=== PATIENT | female | born 1955 | race Caucasian/White ===

== ENCOUNTER → 2017-03-03 | Outpatient (CLI) | payer OTHER ==
[~2017-03-03] MED LIST: ASPIRIN81 M2 PO; ATORVASTATIN CA40 MG PO; CELEXA10 MG PO; CELEXA20 MG PO; CYCLOBENZAPRINE10 MG PO; ERGOCALCIF50000 UNIT PO; FOLIC ACID1 MG PO; HYDROXYCHLOROQ200 MG PO; JANUVIA25 M1 PO; LISINOPRIL30 MG PO; METHOTREXATE2.5 MG PO; METOPROLOL TART25 MG PO; OMEPRAZOLE20 MG PO; PREDNISONE5 MG PO; ROXICODONE5 MG PO; SPIRIVA1 INHALATI IH; VENTOLIN HFA18 GM IH
== END | disposition home or self-care (01) ==
LOC: RES 08:57
DX: Z02.71 Encounter for disability determination (principal)
CPT/HCPCS: 94060; 94729; 94760

== ENCOUNTER 2017-03-10 18:05 | Emergency (ER) | payer OTHER ==
[~2017-03-10] VITALS: Ht 154.9 cm; Wt 75.6 kg
[~2017-03-10 18:05] MED LIST changes: -ATORVASTATIN CA40 MG PO; -CELEXA20 MG PO; -CYCLOBENZAPRINE10 MG PO; -ERGOCALCIF50000 UNIT PO; -FOLIC ACID1 MG PO; -HYDROXYCHLOROQ200 MG PO; -JANUVIA25 M1 PO; -LISINOPRIL30 MG PO; -METHOTREXATE2.5 MG PO; -METOPROLOL TART25 MG PO; -OMEPRAZOLE20 MG PO; -ROXICODONE5 MG PO; -SPIRIVA1 INHALATI IH; -VENTOLIN HFA18 GM IH
[2017-03-10 19:47] LABS: HEMATOCRIT 36.9 % (36.0-46.0); MCH 30.4 PG (29.0-34.0); MCHC 33.3 G/DL (30.0-36.0); MCV 91.1 FL (83-99); MEAN PLAT.VOLUME 8.8 uM^3 (9.5-12.4); PLATELET COUNT 230 K/uL (156-360); RBC DIS.WIDTH-SD 46.1 % (39-53); RED BLOOD COUNT 4.05 M/uL (3.80-5.20); WHITE BLOOD COUNT 9.1 K/uL (4.1-10.2)
[2017-03-10 19:57] LABS: CHLORIDE 106 mEq/L (99-109); POTASSIUM 4.1 mEq/L (3.7-5.4); SODIUM 142 mEq/L (136-147)
[2017-03-10 19:59] LABS: GLUCOSE 99 mg/dL (70-99)
[2017-03-10 20:00] LABS: ANION GAP 9 MEQ/L (2-14)
[2017-03-10 20:03] LABS: GFR ESTIMATE (CALCULATED) > 59 mL/min/
[2017-03-10 20:04] LABS: UREA NITROGEN (BUN) 13 mg/dL (9-23)
[2017-03-10 20:10] LABS: TROP-I INTERPRETATION NEGATIVE; TROPONIN-I < 0.01 ng/mL (0.0-0.30)
[2017-03-10 22:06] VITALS: BP 188/100
== END 2017-03-10 22:08 | disposition home or self-care (01) ==
LOC: EME 18:05
PROVIDERS: Emergency Medicine
DX: E86.0 Dehydration (principal); R55 Syncope and collapse; J44.9 Chronic obstructive pulmonary disease, unspecified; K21.9 Gastro-esophageal reflux disease without esophagitis; M06.9 Rheumatoid arthritis, unspecified; F17.200 Nicotine dependence, unspecified, uncomplicated
CPT/HCPCS: 80048; 84484; 85027; 93005; 99281; 99284; J7030

== ENCOUNTER 2017-03-14 11:38 | Inpatient (IN) | payer OTHER ==
[~2017-03-14] VITALS: Ht 154.9 cm; Wt 75.5 kg
[2017-03-14 13:52] LABS: EOSINOPHIL (%) 1.3 % (0-5); EOSINOPHIL COUNT 0.2 K/uL (0-0.3); HEMATOCRIT 37.5 % (36.0-46.0); IMMATURE GRANULOCYTE (%) 1.1 % (0.0-0.7); IMMATURE GRANULOCYTE COUNT 0.1 K/uL; INSTRUMENT ABS NEUTROPHIL CT 7.5 K/uL; LYMPHOCYTE COUNT 2.4 K/uL (1.0-2.8); MCH 30.6 PG (29.0-34.0); MCHC 33.6 G/DL (30.0-36.0); MEAN PLAT.VOLUME 9.1 uM^3 (9.5-12.4); MONOCYTE (%) 10.3 % (3-12); MONOCYTE COUNT 1.2 K/uL (0-0.8); NEUTROPHIL (%) 66.1 % (45-76); NEUTROPHIL COUNT 7.5 K/uL (1.8-6.4); PLATELET COUNT 235 K/uL (156-360); RBC DIS.WIDTH-SD 46.6 % (39-53); RED BLOOD COUNT 4.12 M/uL (3.80-5.20); WHITE BLOOD COUNT 11.3 K/uL (4.1-10.2)
[2017-03-14 14:01] LABS: CHLORIDE 106 mEq/L (99-109); POTASSIUM 3.9 mEq/L (3.7-5.4); SODIUM 142 mEq/L (136-147)
[2017-03-14 14:02] LABS: INTER. NORMALIZED RATIO 1.1; PTT 22.5 (25-32)
[2017-03-14 14:03] LABS: GLUCOSE 129 mg/dL (70-99)
[2017-03-14 14:04] LABS: ANION GAP 9 MEQ/L (2-14)
[2017-03-14 14:07] LABS: GFR ESTIMATE (CALCULATED) > 59 mL/min/
[2017-03-14 14:08] LABS: UREA NITROGEN (BUN) 18 mg/dL (9-23)
[2017-03-14 14:13] LABS: TROP-I INTERPRETATION NEGATIVE; TROPONIN-I < 0.01 ng/mL (0.0-0.30)
[2017-03-14] MEDS ORDERED: CELEXA20 MG PO (15:51)
[2017-03-14] MEDS ORDERED: FOLIC ACID1 MG PO (15:51)
[2017-03-14] MEDS ORDERED: OMEPRAZOLE20 MG PO (15:52)
[2017-03-14] MEDS ORDERED: LISINOPRIL30 MG PO (15:52)
[2017-03-14] MEDS ORDERED: ATORVASTATIN CA40 MG PO (15:53)
[2017-03-14] MEDS ORDERED: ROXICODONE5 MG PO (15:53)
[2017-03-14] MEDS ORDERED: CYCLOBENZAPRINE10 MG PO (15:53)
[2017-03-14] MEDS ORDERED: ERGOCALCIF50000 UNIT PO (15:54)
[2017-03-14] MEDS ORDERED: HYDROXYCHLOROQ200 MG PO (15:54)
[2017-03-14] MEDS ORDERED: METHOTREXATE2.5 MG PO (15:55)
[2017-03-14] MEDS ORDERED: SPIRIVA1 INHALATI IH (15:55)
[2017-03-14] MEDS ORDERED: METOPROLOL TART25 MG PO (15:55)
[2017-03-14] MEDS ORDERED: JANUVIA25 M1 PO (15:55)
[2017-03-14] MEDS ORDERED: VENTOLIN HFA18 GM IH (15:56)
[2017-03-15] VITALS: BP 153/74
[2017-03-15 03:46] VITALS: BP 125/79
[2017-03-15 08:00] VITALS: BP 159/72
[2017-03-15 11:23] VITALS: BP 129/77
[2017-03-15 15:44] VITALS: BP 143/66
[2017-03-15 19:48] VITALS: BP 161/72
[2017-03-16] VITALS (7 sets, daily range): BP systolic 124–169; BP diastolic 66–78
[2017-03-17 04:49] VITALS: BP 161/70
[2017-03-17 08:05] VITALS: BP 184/88
[2017-03-17 15:31] VITALS: BP 172/82
[2017-03-17 20:23] VITALS: BP 182/80
[2017-03-18 00:27] VITALS: BP 152/72
[2017-03-18 08:21] VITALS: BP 160/84
[2017-03-18] MEDS ORDERED: ASPIR-LOW81 MG PO (17:41)
[2017-03-18] MEDS ORDERED: NICOTINE PATCH1 EAC2 TD (17:41)
== END 2017-03-18 18:58 | disposition home or self-care (01) | DRG 65 ==
LOC: EME 11:38 → EDOF 15:20 → 5SOUTH 15:20
PROVIDERS: Emergency Medicine; Internal Medicine
DX: I63.032 Cerebral infarction due to thrombosis of left carotid artery (principal); G81.91 Hemiplegia, unspecified affecting right dominant side; E78.5 Hyperlipidemia, unspecified; E86.0 Dehydration; F17.210 Nicotine dependence, cigarettes, uncomplicated; J44.9 Chronic obstructive pulmonary disease, unspecified; I10 Essential (primary) hypertension; K21.9 Gastro-esophageal reflux disease without esophagitis; E55.9 Vitamin D deficiency, unspecified; E53.8 Deficiency of other specified B group vitamins; F32.9 Major depressive disorder, single episode, unspecified; G89.4 Chronic pain syndrome; E11.9 Type 2 diabetes mellitus without complications; M06.9 Rheumatoid arthritis, unspecified; G43.909 Migraine, unspecified, not intractable, without status migrainosus; G93.89 Other specified disorders of brain; F41.9 Anxiety disorder, unspecified; Z79.82 Long term (current) use of aspirin; Z86.73 Personal history of transient ischemic attack (TIA), and cerebral infarction without residual deficits; Z79.84 Long term (current) use of oral hypoglycemic drugs
CPT/HCPCS: 70450; 70551; 71010; 80048; 80061; 82948; 83036; 84484; 85025; 85610; 85730; 93005; 93306; 93880; 94640; 94640 76; 99202; 99281; 99285; J7512

== ENCOUNTER 2017-05-02 11:09 | Emergency (ER) | payer OTHER ==
[~2017-05-02] VITALS: Ht 160 cm; Wt 81.0 kg
[~2017-05-02 11:09] MED LIST changes: +ASPIR-LOW81 MG PO; +ATORVASTATIN CA40 MG PO; +CELEXA20 MG PO; +CYCLOBENZAPRINE10 MG PO; +ERGOCALCIF50000 UNIT PO; +FOLIC ACID1 MG PO; +HYDROXYCHLOROQ200 MG PO; +JANUVIA25 M1 PO; +LISINOPRIL30 MG PO; +METHOTREXATE2.5 MG PO; +METOPROLOL TART25 MG PO; +NICOTINE PATCH1 EAC2 TD; +OMEPRAZOLE20 MG PO; +ROXICODONE5 MG PO; +SPIRIVA RESPIMAT4 G1 IH; +SPIRIVA1 INHALATI IH; +TRAMADOL HCL50 MG PO; +VENTOLIN HFA18 GM IH
[2017-05-02] MEDS ORDERED: PREDNISONE50 MG PO (14:12)
[2017-05-02 14:15] LABS: MCHC 32.3 G/DL (30.0-36.0); MCV 92.8 FL (83-99); PLATELET COUNT 195 K/uL (156-360); RBC DIS.WIDTH-CV 13.6 % (11.8-14.6); RBC DIS.WIDTH-SD 45.8 % (39-53); RED BLOOD COUNT 3.77 M/uL (3.80-5.20); WHITE BLOOD COUNT 10.4 K/uL (4.1-10.2)
[2017-05-02 14:24] LABS: CHLORIDE 104 mEq/L (99-109); SODIUM 139 mEq/L (136-147)
[2017-05-02 14:26] LABS: GLUCOSE 140 mg/dL (70-99)
[2017-05-02 14:27] LABS: ANION GAP 9 MEQ/L (2-14)
[2017-05-02 14:30] LABS: GFR ESTIMATE (CALCULATED) > 59 mL/min/
[2017-05-02 14:31] LABS: UREA NITROGEN (BUN) 10 mg/dL (9-23)
[2017-05-02 14:37] LABS: TROP-I INTERPRETATION NEGATIVE; TROPONIN-I < 0.01 ng/mL (0.0-0.30)
[2017-05-02 14:57] VITALS: BP 117/74
== END 2017-05-02 15:04 | disposition home or self-care (01) ==
LOC: EME 11:09
DX: J44.1 Chronic obstructive pulmonary disease with (acute) exacerbation (principal); Z87.891 Personal history of nicotine dependence; Z86.73 Personal history of transient ischemic attack (TIA), and cerebral infarction without residual deficits; K21.9 Gastro-esophageal reflux disease without esophagitis
CPT/HCPCS: 71020; 80048; 83880; 84484; 85027; 94640; 99281; 99284; J2930

== ENCOUNTER 2017-06-20 10:10 | Emergency (ER) | payer OTHER ==
[~2017-06-20] VITALS: Ht 160 cm; Wt 84.4 kg
[~2017-06-20 10:10] MED LIST changes: +GABAPENTIN300 MG PO; +PREDNISONE50 MG PO
[2017-06-20] MEDS ORDERED: PREDNISONE20 MG PO (12:45)
[2017-06-20] MEDS ORDERED: DUONEB 2.5-0.5 M3 ML AEROSOL (12:45)
[2017-06-20] MEDS ORDERED: PROVENTIL,2.5 MG/3 M IH (12:45)
[2017-06-20 13:00] VITALS: BP 168/83
== END 2017-06-20 13:01 | disposition home or self-care (01) ==
LOC: EME 10:10
DX: J44.9 Chronic obstructive pulmonary disease, unspecified (principal); R06.2 Wheezing; F17.200 Nicotine dependence, unspecified, uncomplicated; Z86.73 Personal history of transient ischemic attack (TIA), and cerebral infarction without residual deficits; K21.9 Gastro-esophageal reflux disease without esophagitis; M06.9 Rheumatoid arthritis, unspecified
CPT/HCPCS: 71020; 80048; 85027; 94640; 99281; 99284

== ENCOUNTER 2017-06-28 12:16 | Emergency (ER) | payer OTHER ==
[~2017-06-28] VITALS: Ht 160 cm; Wt 85.9 kg
[~2017-06-28 12:16] MED LIST changes: +DUONEB 2.5-0.5 M3 ML AEROSOL; +PREDNISONE20 MG PO; +PROVENTIL,2.5 MG/3 M IH
[2017-06-28] MEDS ORDERED: XARELTO15 MG PO (15:02)
[2017-06-28 16:23] VITALS: BP 141/57
== END 2017-06-28 16:25 | disposition home or self-care (01) ==
LOC: EME 12:16
DX: I82.B11 Acute embolism and thrombosis of right subclavian vein (principal); Z79.82 Long term (current) use of aspirin; J44.9 Chronic obstructive pulmonary disease, unspecified; M06.9 Rheumatoid arthritis, unspecified; Z86.73 Personal history of transient ischemic attack (TIA), and cerebral infarction without residual deficits; F17.200 Nicotine dependence, unspecified, uncomplicated; Z95.828 Presence of other vascular implants and grafts
CPT/HCPCS: 73030; 85610; 93971; 99281; 99284

== ENCOUNTER 2017-07-24 17:41 | Observation (INO) | payer OTHER ==
[~2017-07-24] VITALS: Ht 160 cm; Wt 119.0 kg
[~2017-07-24 17:41] MED LIST changes: +SPIRIVA RESPIMAT4 GM IH; -SPIRIVA1 INHALATI IH; +XARELTO15 MG PO
[2017-07-24 18:47] LABS: EOSINOPHIL (%) 0.4 % (0-5); HEMATOCRIT 36.2 % (36.0-46.0); IMMATURE GRANULOCYTE (%) 0.7 % (0.0-0.7); IMMATURE GRANULOCYTE COUNT 0.1 K/uL; INSTRUMENT ABS NEUTROPHIL CT 7.6 K/uL; LYMPHOCYTE COUNT 2.1 K/uL (1.0-2.8); MCHC 32.6 G/DL (30.0-36.0); MCV 92.1 FL (83-99); MEAN PLAT.VOLUME 9.6 uM^3 (9.5-12.4); MONOCYTE (%) 8.1 % (3-12); MONOCYTE COUNT 0.9 K/uL (0-0.8); NEUTROPHIL COUNT 7.6 K/uL (1.8-6.4); PLATELET COUNT 196 K/uL (156-360); RBC DIS.WIDTH-CV 13.3 % (11.8-14.6); RED BLOOD COUNT 3.93 M/uL (3.80-5.20); WHITE BLOOD COUNT 10.7 K/uL (4.1-10.2)
[2017-07-24 18:52] LABS: INTER. NORMALIZED RATIO 1.6; PROTHROMBIN TIME 18.3 SEC (10.2-12.9)
[2017-07-24 18:55] LABS: PTT 76.9 SEC (25-37)
[2017-07-24 18:56] LABS: CHLORIDE 108 mEq/L (99-109); POTASSIUM 3.6 mEq/L (3.7-5.4); SODIUM 144 mEq/L (136-147)
[2017-07-24 18:57] LABS: GLUCOSE 189 mg/dL (70-99)
[2017-07-24 18:59] LABS: ANION GAP 11 MEQ/L (2-14)
[2017-07-24 19:01] LABS: GFR ESTIMATE (CALCULATED) > 59 mL/min/
[2017-07-24 19:02] LABS: UREA NITROGEN (BUN) 13 mg/dL (9-23)
[2017-07-24 19:07] LABS: TROP-I INTERPRETATION NEGATIVE; TROPONIN-I < 0.01 ng/mL (0.0-0.30)
[2017-07-24] MEDS ORDERED: DUONEB 2.5-0.5 M3 ML AEROSOL (20:09)
[2017-07-24] MEDS ORDERED: LO-DOSE ASPIRIN81 M1 PO (20:10)
[2017-07-24 22:16] VITALS: BP 149/70
[2017-07-24 23:42] VITALS: BP 158/72
[2017-07-25 01:47] LABS: TROP-I INTERPRETATION NEGATIVE; TROPONIN-I < 0.01 ng/mL (0.0-0.30)
[2017-07-25 03:54] VITALS: BP 144/104
[2017-07-25 04:35] VITALS: BP 159/72
[2017-07-25 08:34] VITALS: BP 132/69
[2017-07-25 09:04] LABS: TROP-I INTERPRETATION NEGATIVE; TROPONIN-I < 0.01 ng/mL (0.0-0.30)
[2017-07-25 11:19] VITALS: BP 116/68
== END 2017-07-25 14:55 | disposition home or self-care (01) ==
LOC: EME 17:41 → EDOF 20:00 → ENRESERV 20:47 → 5WEST 22:02
PROVIDERS: Emergency Medicine; Internal Medicine
DX: R07.9 Chest pain, unspecified (principal); R51 Headache; R20.0 Anesthesia of skin; I10 Essential (primary) hypertension; E87.6 Hypokalemia; E78.5 Hyperlipidemia, unspecified; E11.9 Type 2 diabetes mellitus without complications; J44.9 Chronic obstructive pulmonary disease, unspecified; M06.9 Rheumatoid arthritis, unspecified; F32.9 Major depressive disorder, single episode, unspecified; F41.9 Anxiety disorder, unspecified; K21.9 Gastro-esophageal reflux disease without esophagitis; M19.90 Unspecified osteoarthritis, unspecified site; E53.8 Deficiency of other specified B group vitamins; E55.9 Vitamin D deficiency, unspecified; G89.4 Chronic pain syndrome; Z86.73 Personal history of transient ischemic attack (TIA), and cerebral infarction without residual deficits; F17.210 Nicotine dependence, cigarettes, uncomplicated; Z79.899 Other long term (current) drug therapy; Z79.82 Long term (current) use of aspirin; Z79.01 Long term (current) use of anticoagulants; Z79.891 Long term (current) use of opiate analgesic
CPT/HCPCS: 70450; 71010; 80048; 84484; 85025; 85610; 85730; 93005; 94640; 94640 76; 99202; 99281; 99285; G0378; J7512

== ENCOUNTER 2017-08-16 03:28 | Inpatient (IN) | payer OTHER ==
[~2017-08-16] VITALS: Ht 160 cm; Wt 86.6 kg
[~2017-08-16 03:28] MED LIST changes: +LO-DOSE ASPIRIN81 M1 PO
[2017-08-16 04:32] LABS: BASOPHIL COUNT 0.1 K/uL (0-0.1); EOSINOPHIL (%) 1.1 % (0-5); EOSINOPHIL COUNT 0.2 K/uL (0-0.3); HEMATOCRIT 38.5 % (36.0-46.0); IMMATURE GRANULOCYTE (%) 0.5 % (0.0-0.7); IMMATURE GRANULOCYTE COUNT 0.1 K/uL; INSTRUMENT ABS NEUTROPHIL CT 11.9 K/uL; LYMPHOCYTE COUNT 2.3 K/uL (1.0-2.8); MCH 30.5 PG (29.0-34.0); MCV 92.5 FL (83-99); MEAN PLAT.VOLUME 9.5 uM^3 (9.5-12.4); MONOCYTE (%) 7.2 % (3-12); MONOCYTE COUNT 1.1 K/uL (0-0.8); NEUTROPHIL (%) 76.3 % (45-76); NEUTROPHIL COUNT 11.9 K/uL (1.8-6.4); PLATELET COUNT 237 K/uL (156-360); RBC DIS.WIDTH-CV 13.7 % (11.8-14.6); RBC DIS.WIDTH-SD 45.5 % (39-53); RED BLOOD COUNT 4.16 M/uL (3.80-5.20); WHITE BLOOD COUNT 15.7 K/uL (4.1-10.2)
[2017-08-16 04:40] LABS: CHLORIDE 107 mEq/L (99-109); POTASSIUM 3.6 mEq/L (3.7-5.4); SODIUM 142 mEq/L (136-147)
[2017-08-16 04:42] LABS: GLUCOSE 106 mg/dL (70-99)
[2017-08-16 04:43] LABS: ANION GAP 7 MEQ/L (2-14)
[2017-08-16 04:45] LABS: GFR ESTIMATE (CALCULATED) > 59 mL/min/
[2017-08-16 04:46] LABS: UREA NITROGEN (BUN) 11 mg/dL (9-23)
[2017-08-16 04:51] LABS: TROP-I INTERPRETATION NEGATIVE; TROPONIN-I < 0.01 ng/mL (0.0-0.30)
[2017-08-16 07:37] LABS: ADD MIUA? NO; BILIRUBIN NEGATIVE; BLOOD NEGATIVE; COLOR YELLOW ((YELLOW)); GLUCOSE (STRIP) NEGATIVE; KETONES NEGATIVE; LEUKOCYTES NEGATIVE; NITRITE NEGATIVE; PROTEIN (STRIP) NEGATIVE; SPECIFIC GRAVITY 1.016 (1.000-1.030); UCUL ADDED? NO; UROBILINOGEN 0.2 MG/DL (0.2-1.0)
[2017-08-16 08:20] VITALS: BP 160/70
[2017-08-16 11:19] LABS: POINT-OF-CARE METER ID UU14162508
[2017-08-16 11:32] VITALS: BP 141/81
[2017-08-16 14:23] LABS: POINT-OF-CARE METER ID UU14314084
[2017-08-16 15:30] VITALS: BP 121/59
[2017-08-16 15:53] LABS: POINT-OF-CARE METER ID UU14208750
[2017-08-16 17:22] LABS: POINT-OF-CARE METER ID UU14314084
[2017-08-16 20:12] VITALS: BP 155/74
[2017-08-16 21:29] LABS: POINT-OF-CARE METER ID UU14314084
[2017-08-17] VITALS (7 sets, daily range): BP systolic 115–154; BP diastolic 55–89
[2017-08-17 07:36] LABS: POINT-OF-CARE METER ID UU14314084
[2017-08-17 14:29] LABS: POINT-OF-CARE METER ID UU14162508
[2017-08-17 16:41] LABS: POINT-OF-CARE METER ID UU14208750
[2017-08-17 22:18] LABS: POINT-OF-CARE METER ID UU14208750
[2017-08-18 04:38] VITALS: BP 131/66
[2017-08-18 06:36] LABS: POINT-OF-CARE METER ID UU14208750
[2017-08-18 07:05] VITALS: BP 179/81
[2017-08-18 12:05] VITALS: BP 166/81
[2017-08-18 12:20] LABS: POINT-OF-CARE METER ID UU14208750
[2017-08-18 16:10] VITALS: BP 162/77
[2017-08-18 16:26] LABS: POINT-OF-CARE METER ID UU14208750
[2017-08-18 20:23] VITALS: BP 177/85
[2017-08-18 21:30] VITALS: BP 162/88
[2017-08-18 21:37] LABS: POINT-OF-CARE METER ID UU14208750
[2017-08-19] VITALS (7 sets, daily range): BP systolic 148–195; BP diastolic 68–111
[2017-08-19 06:34] LABS: POINT-OF-CARE METER ID UU14208750
[2017-08-19 06:50] LABS: EOSINOPHIL (%) 0 % (0-5); HEMATOCRIT 34.9 % (36.0-46.0); IMMATURE GRANULOCYTE (%) 3.4 % (0.0-0.7); IMMATURE GRANULOCYTE COUNT 0.5 K/uL; INSTRUMENT ABS NEUTROPHIL CT 13.7 K/uL; LYMPHOCYTE COUNT 0.7 K/uL (1.0-2.8); MCH 30.9 PG (29.0-34.0); MCHC 33.2 G/DL (30.0-36.0); MCV 92.8 FL (83-99); MEAN PLAT.VOLUME 9.9 uM^3 (9.5-12.4); MONOCYTE (%) 2.7 % (3-12); MONOCYTE COUNT 0.4 K/uL (0-0.8); NEUTROPHIL COUNT 13.7 K/uL (1.8-6.4); NRBC (%) 0.1 /100 WBC (0-0); PLATELET COUNT 218 K/uL (156-360); RBC DIS.WIDTH-CV 13.8 % (11.8-14.6); RBC DIS.WIDTH-SD 46.5 % (39-53); RED BLOOD COUNT 3.76 M/uL (3.80-5.20); WHITE BLOOD COUNT 15.4 K/uL (4.1-10.2)
[2017-08-19 07:27] LABS: ANION GAP 9 MEQ/L (2-14); CHLORIDE 102 MEQ/L (99-109); GFR ESTIMATE (CALCULATED) > 59 mL/min/; GLUCOSE 220 mg/dL (70-99); POTASSIUM 3.9 MEQ/L (3.7-5.4); SAMPLE HEMOLYSIS CHECK 0; SAMPLE ICTERIC CHECK 0; SAMPLE LIPEMIA CHECK 0; SODIUM 141 MEQ/L (136-147); UREA NITROGEN (BUN) 21 mg/dL (9-23)
[2017-08-19 11:20] LABS: POINT-OF-CARE METER ID UU14314084; POINT-OF-CARE USER ID PUTDRM
[2017-08-19 16:59] LABS: POINT-OF-CARE METER ID UU14208750; POINT-OF-CARE USER ID PUTDRM
[2017-08-19 21:41] LABS: POINT-OF-CARE METER ID UU14162508
[2017-08-20 02:18] VITALS: BP 156/72
[2017-08-20 06:58] LABS: POINT-OF-CARE METER ID UU14162508
[2017-08-20 07:54] VITALS: BP 161/83
[2017-08-20 11:30] VITALS: BP 194/93
[2017-08-20 12:22] LABS: POINT-OF-CARE METER ID UU14314084; POINT-OF-CARE USER ID PUTDRM
[2017-08-20 15:54] VITALS: BP 192/88
[2017-08-20 16:11] LABS: POINT-OF-CARE METER ID UU14162508; POINT-OF-CARE USER ID PUTDRM
[2017-08-20 19:00] VITALS: BP 159/81
[2017-08-20 20:47] LABS: POINT-OF-CARE METER ID UU14314084
[2017-08-20 20:59] VITALS: BP 159/81
[2017-08-21 00:26] VITALS: BP 183/86
[2017-08-21 06:50] VITALS: BP 184/96
[2017-08-21 08:29] LABS: POINT-OF-CARE METER ID UU14314084
[2017-08-21 10:07] VITALS: BP 172/81
[2017-08-21 12:14] LABS: POINT-OF-CARE METER ID UU14314084
[2017-08-21] MEDS ORDERED: LISINOPRIL30 MG PO (14:49)
[2017-08-21] MEDS ORDERED: XARELTO15 MG PO (14:54)
== END 2017-08-21 16:15 | disposition home or self-care (01) | DRG 192 ==
LOC: EME 03:28 → EDOF 06:15 → 2EAST 06:15 → ENRESERV 07:16 → 2EAST 08:12
PROVIDERS: Emergency Medicine; Internal Medicine
DX: J44.1 Chronic obstructive pulmonary disease with (acute) exacerbation (principal); J20.9 Acute bronchitis, unspecified; I10 Essential (primary) hypertension; E11.9 Type 2 diabetes mellitus without complications; E78.5 Hyperlipidemia, unspecified; K21.9 Gastro-esophageal reflux disease without esophagitis; E87.6 Hypokalemia; E55.9 Vitamin D deficiency, unspecified; F32.9 Major depressive disorder, single episode, unspecified; F41.9 Anxiety disorder, unspecified; M06.9 Rheumatoid arthritis, unspecified; E53.8 Deficiency of other specified B group vitamins; R09.02 Hypoxemia; Z86.73 Personal history of transient ischemic attack (TIA), and cerebral infarction without residual deficits; F17.200 Nicotine dependence, unspecified, uncomplicated; J44.0 Chronic obstructive pulmonary disease with (acute) lower respiratory infection
CPT/HCPCS: 71010; 80048; 81003; 82948; 83605; 84484; 85025; 87040; 93005; 94640; 94640 76; 94799; 99202; 99281; 99285; J0456; J0692; J1100; J1815; J1956; J2405; J2920; J2930; J3370; J7030; J7050; J7512; J8610

== ENCOUNTER 2017-09-17 12:17 | Inpatient (IN) | payer OTHER ==
[~2017-09-17] VITALS: Ht 160 cm; Wt 88.3 kg
[2017-09-17 12:46] LABS: HEMATOCRIT 38.4 % (36.0-46.0); MCH 30.8 PG (29.0-34.0); MCHC 33.3 G/DL (30.0-36.0); MCV 92.5 FL (83-99); MEAN PLAT.VOLUME 9.4 uM^3 (9.5-12.4); PLATELET COUNT 219 K/uL (156-360); RBC DIS.WIDTH-CV 13.5 % (11.8-14.6); RBC DIS.WIDTH-SD 44.4 % (39-53); RED BLOOD COUNT 4.15 M/uL (3.80-5.20); WHITE BLOOD COUNT 13.8 K/uL (4.1-10.2)
[2017-09-17 13:04] LABS: CHLORIDE 105 mEq/L (99-109); POTASSIUM 4.1 mEq/L (3.7-5.4); SODIUM 143 mEq/L (136-147)
[2017-09-17 13:05] LABS: GLUCOSE 236 mg/dL (70-99)
[2017-09-17 13:07] LABS: ANION GAP 10 MEQ/L (2-14)
[2017-09-17 13:09] LABS: GFR ESTIMATE (CALCULATED) > 59 mL/min/
[2017-09-17 13:10] LABS: UREA NITROGEN (BUN) 9 mg/dL (9-23)
[2017-09-17 13:27] LABS: TROP-I INTERPRETATION NEGATIVE; TROPONIN-I 0.04 ng/mL (0.0-0.30)
[2017-09-17 15:18] LABS: D-DIMER ELISA < 150.00 ng/mLDDU (<230)
[2017-09-17 15:59] LABS: INTER. NORMALIZED RATIO 2.8
[2017-09-17 16:01] LABS: PTT 35.5 SEC (25-37)
[2017-09-17] MEDS ORDERED: XARELTO20 MG PO (16:22)
[2017-09-17 17:28] LABS: TROP-I INTERPRETATION NEGATIVE; TROPONIN-I < 0.01 ng/mL (0.0-0.30)
[2017-09-17 18:05] LABS: ADD MIUA? YES; BILIRUBIN NEGATIVE; BLOOD SMALL; COLOR YELLOW ((YELLOW)); GLUCOSE (STRIP) 150; KETONES NEGATIVE; LEUKOCYTES NEGATIVE; NITRITE NEGATIVE; PROTEIN (STRIP) NEGATIVE; UROBILINOGEN 0.2 MG/DL (0.2-1.0)
[2017-09-17 18:26] LABS: BACTERIA RARE /HPF; EPITHELIAL CELLS RARE /HPF; MUCUS TRACE /LPF; RED BLOOD CELLS 0-5 /HPF (0-5); UCUL ADDED? NO; WHITE BLOOD CELLS 0-5 /HPF (0-5)
[2017-09-17 22:11] VITALS: BP 118/64
[2017-09-17 23:23] LABS: POINT-OF-CARE METER ID UU14174225
[2017-09-18] VITALS (7 sets, daily range): BP systolic 115–140; BP diastolic 61–74
[2017-09-18 09:48] LABS: POINT-OF-CARE METER ID UU13113717
[2017-09-18 13:07] LABS: POINT-OF-CARE METER ID UU13113717
[2017-09-18 15:07] LABS: FASTING STATUS NONFASTING
[2017-09-18 15:34] LABS: HDL CHOLESTEROL 43 MG/DL (Desirable>=50); LDL CHOLESTEROL 55 mg/dL (Desirable<100); NON-HDL CHOLESTEROL 91 mg/dL (Desirable<160); TOTAL CHOLESTEROL 134 mg/dL (Desirable<200); TRIGLYCERIDES 181 MG/DL (Normal: <150)
[2017-09-18 17:04] LABS: Estimated Average Glucose 189 mg/dL (70-123)
[2017-09-18 17:07] LABS: HEMOGLOBIN A1c (GLYCOHEMOGLOB) 8.2 % HGB (Below 5.7)
[2017-09-18 17:21] LABS: POINT-OF-CARE METER ID UU13113717
[2017-09-18 20:45] LABS: POINT-OF-CARE METER ID UU14174225
[2017-09-19 04:04] VITALS: BP 132/75
[2017-09-19 07:54] VITALS: BP 125/78
[2017-09-19 10:10] LABS: POINT-OF-CARE METER ID UU13113717
[2017-09-19 11:50] VITALS: BP 102/60
[2017-09-19 12:19] LABS: POINT-OF-CARE METER ID UU14174225
== END 2017-09-19 15:54 | disposition home or self-care (01) | DRG 93 ==
LOC: EME 12:17 → EDOF 18:46 → ENRESERV 18:49 → 5SOUTH 21:06
PROVIDERS: Internal Medicine; Physician Assistant Medical
DX: R20.2 Paresthesia of skin (principal); I10 Essential (primary) hypertension; J44.9 Chronic obstructive pulmonary disease, unspecified; E11.9 Type 2 diabetes mellitus without complications; Z86.73 Personal history of transient ischemic attack (TIA), and cerebral infarction without residual deficits; Z86.718 Personal history of other venous thrombosis and embolism; E78.5 Hyperlipidemia, unspecified; M06.9 Rheumatoid arthritis, unspecified; K21.9 Gastro-esophageal reflux disease without esophagitis; M19.90 Unspecified osteoarthritis, unspecified site; F41.9 Anxiety disorder, unspecified; E55.9 Vitamin D deficiency, unspecified; E53.8 Deficiency of other specified B group vitamins; F32.9 Major depressive disorder, single episode, unspecified; F17.200 Nicotine dependence, unspecified, uncomplicated; Z79.82 Long term (current) use of aspirin; Z68.34 Body mass index [BMI] 34.0-34.9, adult
CPT/HCPCS: 70450; 70551; 71020; 80048; 80061; 81003; 82948; 83036; 84484; 85027; 85379; 85610; 85730; 93005; 94640; 94640 76; 99202; 99281; 99285; J1815; J7512

== ENCOUNTER 2017-10-23 11:31 | Inpatient (IN) | payer OTHER ==
[~2017-10-23] VITALS: Ht 160 cm; Wt 88.6 kg
[~2017-10-23 11:31] MED LIST changes: +XARELTO20 MG PO
[2017-10-23 13:01] LABS: BASOPHIL (%) 0.3 % (0-1); EOSINOPHIL (%) 0.9 % (0-5); EOSINOPHIL COUNT 0.1 K/uL (0-0.3); HEMATOCRIT 36.6 % (36.0-46.0); HEMOGLOBIN 12.2 G/DL (11.9-15.5); IMMATURE GRANULOCYTE (%) 0.7 % (0.0-0.7); LYMPHOCYTE (%) 12.2 % (15-42); LYMPHOCYTE COUNT 1.6 K/uL (1.0-2.8); MCH 31.4 PG (29.0-34.0); MCHC 33.3 G/DL (30.0-36.0); MCV 94.1 FL (83-99); MONOCYTE (%) 8.5 % (3-12); MONOCYTE COUNT 1.1 K/uL (0-0.8); NEUTROPHIL (%) 77.4 % (45-76); NEUTROPHIL COUNT 10.4 K/uL (1.8-6.4); PLATELET COUNT 235 K/uL (156-360); RBC DIS.WIDTH-CV 14.6 % (11.8-14.6); RED BLOOD COUNT 3.89 M/uL (3.80-5.20); WHITE BLOOD COUNT 13.4 K/uL (4.1-10.2)
[2017-10-23 13:09] LABS: INTER. NORMALIZED RATIO 2.5
[2017-10-23 13:11] LABS: PTT 35.3 SEC (25-37)
[2017-10-23 13:14] LABS: CHLORIDE 107 mEq/L (99-109); POTASSIUM 3.9 mEq/L (3.7-5.4); SODIUM 142 mEq/L (136-147)
[2017-10-23 13:15] LABS: GLUCOSE 197 mg/dL (70-99)
[2017-10-23 13:19] LABS: GFR ESTIMATE (CALCULATED) > 59 mL/min/
[2017-10-23 13:20] LABS: UREA NITROGEN (BUN) 11 mg/dL (9-23)
[2017-10-23 13:50] LABS: HDL CHOLESTEROL 41 MG/DL (Desirable>=50); LDL CHOLESTEROL 30 mg/dL (Desirable<100); NON-HDL CHOLESTEROL 63 mg/dL (Desirable<160); TOTAL CHOLESTEROL 104 mg/dL (Desirable<200); TRIGLYCERIDES 167 MG/DL (Normal: <150)
[2017-10-23 14:11] LABS: HEMOGLOBIN A1c (GLYCOHEMOGLOB) 7.6 % HGB (Below 5.7)
[2017-10-24 00:41] VITALS: BP 123/60
[2017-10-24 04:00] VITALS: BP 121/72
[2017-10-24 07:55] VITALS: BP 130/66
[2017-10-24 11:40] VITALS: BP 108/59
[2017-10-24 16:51] VITALS: BP 114/60
[2017-10-25 01:57] VITALS: BP 114/56
[2017-10-25 08:22] VITALS: BP 124/76
[2017-10-25 12:39] LABS: HEMOGLOBIN 10.8 G/DL (11.9-15.5); MCH 31.5 PG (29.0-34.0); MCHC 32.7 G/DL (30.0-36.0); MCV 96.2 FL (83-99); PLATELET COUNT 232 K/uL (156-360); RBC DIS.WIDTH-CV 14.6 % (11.8-14.6); RBC DIS.WIDTH-SD 50.8 % (39-53); RED BLOOD COUNT 3.43 M/uL (3.80-5.20); WHITE BLOOD COUNT 11.8 K/uL (4.1-10.2)
[2017-10-25 13:01] LABS: ALBUMIN 3.2 G/DL (3.2-4.8); ALKALINE PHOSPHATASE 83 IU/L (3-129); ALT (GPT) 13 IU/L (3-49); AST (GOT) 14 IU/L (2-34); CHLORIDE 105 MEQ/L (99-109); GFR ESTIMATE (CALCULATED) > 59 mL/min/; GLUCOSE 194 mg/dL (70-99); HDL CHOLESTEROL 40 MG/DL (Desirable>=50); LDL CHOLESTEROL 42 mg/dL (Desirable<100); NON-HDL CHOLESTEROL 66 mg/dL (Desirable<160); POTASSIUM 4.2 MEQ/L (3.7-5.4); SODIUM 141 MEQ/L (136-147); TOTAL BILIRUBIN 0.3 MG/DL (0.0-1.0); TOTAL CHOLESTEROL 106 mg/dL (Desirable<200); TOTAL PROTEIN 5.3 G/DL (6.4-8.3); TRIGLYCERIDES 121 MG/DL (Normal: <150); UREA NITROGEN (BUN) 14 mg/dL (9-23)
[2017-10-25 15:32] VITALS: BP 110/67
== END 2017-10-25 21:08 | disposition home or self-care (01) | DRG 93 ==
LOC: EME 11:31 → EDOF 21:11 → 5SOUTH 21:11 → ENRESERV 21:13 → 5SOUTH 22:55
PROVIDERS: Emergency Medicine; Internal Medicine
DX: R20.0 Anesthesia of skin (principal); R53.1 Weakness; I10 Essential (primary) hypertension; J44.9 Chronic obstructive pulmonary disease, unspecified; E78.5 Hyperlipidemia, unspecified; M06.9 Rheumatoid arthritis, unspecified; K21.9 Gastro-esophageal reflux disease without esophagitis; M19.90 Unspecified osteoarthritis, unspecified site; F41.9 Anxiety disorder, unspecified; E55.9 Vitamin D deficiency, unspecified; F32.9 Major depressive disorder, single episode, unspecified; E11.9 Type 2 diabetes mellitus without complications; F17.200 Nicotine dependence, unspecified, uncomplicated; E66.9 Obesity, unspecified; Z68.34 Body mass index [BMI] 34.0-34.9, adult; I69.398 Other sequelae of cerebral infarction; Z79.01 Long term (current) use of anticoagulants; Z79.82 Long term (current) use of aspirin; Z79.84 Long term (current) use of oral hypoglycemic drugs; Z86.718 Personal history of other venous thrombosis and embolism
CPT/HCPCS: 70450; 70551; 80048; 80053; 80061; 82948; 83036; 85025; 85027; 85610; 85730; 93005; 94640; 94640 76; 94760; 99281; 99285; C9113; J7512

== ENCOUNTER 2017-11-27 21:07 | Inpatient (IN) | payer OTHER ==
[~2017-11-27] VITALS: Ht 160 cm; Wt 88.3 kg
[2017-11-27 23:13] LABS: HEMATOCRIT 34.4 % (36.0-46.0); HEMOGLOBIN 11.5 G/DL (11.9-15.5); MCH 31.8 PG (29.0-34.0); MCHC 33.4 G/DL (30.0-36.0); PLATELET COUNT 219 K/uL (156-360); RBC DIS.WIDTH-CV 14.4 % (11.8-14.6); RBC DIS.WIDTH-SD 49.5 % (39-53); RED BLOOD COUNT 3.62 M/uL (3.80-5.20); WHITE BLOOD COUNT 13.8 K/uL (4.1-10.2)
[2017-11-27 23:39] LABS: CHLORIDE 105 MEQ/L (99-109); CREATININE 0.9 MG/DL (0.6-1.3); GFR ESTIMATE (CALCULATED) > 59 mL/min/; GLUCOSE 138 mg/dL (70-99); POTASSIUM 3.6 MEQ/L (3.7-5.4); SODIUM 140 MEQ/L (136-147); UREA NITROGEN (BUN) 8 mg/dL (9-23)
[2017-11-28] VITALS (7 sets, daily range): BP systolic 125–173; BP diastolic 66–81
[2017-11-28] MEDS ORDERED: AMITRIPTYLINE H10 MG PO (00:21)
[2017-11-28 07:35] LABS: APPEARANCE CLEAR ((CLEAR)); BILIRUBIN NEGATIVE; BLOOD SMALL; COLOR YELLOW ((YELLOW)); GLUCOSE (STRIP) >=500; KETONES NEGATIVE; LEUKOCYTES NEGATIVE; NITRITE NEGATIVE; PROTEIN (STRIP) NEGATIVE; SPECIFIC GRAVITY 1.009 (1.000-1.030); UROBILINOGEN 0.2 MG/DL (0.2-1.0)
[2017-11-28 07:41] LABS: HEMATOCRIT 33.8 % (36.0-46.0); HEMOGLOBIN 10.8 G/DL (11.9-15.5); MCH 30.3 PG (29.0-34.0); MCV 94.9 FL (83-99); PLATELET COUNT 199 K/uL (156-360); RBC DIS.WIDTH-CV 14.3 % (11.8-14.6); RED BLOOD COUNT 3.56 M/uL (3.80-5.20); WHITE BLOOD COUNT 9.6 K/uL (4.1-10.2)
[2017-11-28 07:55] LABS: BACTERIA RARE /HPF; EPITHELIAL CELLS RARE /HPF; MUCUS TRACE /LPF; WHITE BLOOD CELLS 0-5 /HPF (0-5)
[2017-11-28 08:05] LABS: ALBUMIN 3.5 G/DL (3.2-4.8); ALKALINE PHOSPHATASE 103 IU/L (3-129); ALT (GPT) 20 IU/L (3-49); AST (GOT) 21 IU/L (2-34); CHLORIDE 104 MEQ/L (99-109); GFR ESTIMATE (CALCULATED) > 59 mL/min/; POTASSIUM 4.1 MEQ/L (3.7-5.4); SODIUM 139 MEQ/L (136-147); TOTAL BILIRUBIN 0.2 MG/DL (0.0-1.0); TOTAL PROTEIN 5.9 G/DL (6.4-8.3); UREA NITROGEN (BUN) 11 mg/dL (9-23)
[2017-11-28 08:07] LABS: GLUCOSE 285 mg/dL (70-99)
[2017-11-29 03:43] VITALS: BP 138/75
[2017-11-29 07:05] VITALS: BP 140/70
[2017-11-29 11:59] VITALS: BP 148/64
[2017-11-29 15:24] VITALS: BP 126/69
[2017-11-29 23:03] VITALS: BP 145/66
[2017-11-30 03:35] VITALS: BP 140/72
[2017-11-30 07:42] VITALS: BP 130/72
[2017-11-30 11:39] VITALS: BP 129/76
[2017-11-30 16:00] VITALS: BP 121/68
[2017-11-30 19:35] VITALS: BP 133/66
[2017-11-30 23:25] VITALS: BP 130/72
[2017-12-01 03:22] VITALS: BP 128/66
[2017-12-01 09:19] VITALS: BP 132/78
[2017-12-01 16:00] VITALS: BP 130/69
[2017-12-02 00:32] VITALS: BP 125/70
[2017-12-02 06:55] VITALS: BP 130/64
[2017-12-02 16:06] VITALS: BP 120/62
== END 2017-12-02 19:40 | disposition home or self-care (01) | DRG 192 ==
LOC: EME → EDBD 21:07 → EDOF 11-28 00:05 → 2EAST 11-28 00:05 → ENRESERV 11-28 01:05 → 2EAST 11-28 02:32
PROVIDERS: Internal Medicine
DX: J44.1 Chronic obstructive pulmonary disease with (acute) exacerbation (principal); J44.0 Chronic obstructive pulmonary disease with (acute) lower respiratory infection; J10.1 Influenza due to other identified influenza virus with other respiratory manifestations; I10 Essential (primary) hypertension; E78.5 Hyperlipidemia, unspecified; R09.02 Hypoxemia; E11.9 Type 2 diabetes mellitus without complications; D64.9 Anemia, unspecified; E87.6 Hypokalemia; K21.9 Gastro-esophageal reflux disease without esophagitis; E53.8 Deficiency of other specified B group vitamins; F17.200 Nicotine dependence, unspecified, uncomplicated; E66.9 Obesity, unspecified; J20.9 Acute bronchitis, unspecified; F41.9 Anxiety disorder, unspecified; F32.9 Major depressive disorder, single episode, unspecified; E55.9 Vitamin D deficiency, unspecified; M06.9 Rheumatoid arthritis, unspecified; Z86.718 Personal history of other venous thrombosis and embolism; Z79.82 Long term (current) use of aspirin; Z86.73 Personal history of transient ischemic attack (TIA), and cerebral infarction without residual deficits; Z68.34 Body mass index [BMI] 34.0-34.9, adult; Z97.8 Presence of other specified devices
CPT/HCPCS: 71046; 80048; 80053; 81003; 82948; 85027; 87070; 87205; 87502; 93005; 94640; 94640 76; 94644; 94799; 99202; 99281; 99285; J0456; J1100; J1815; J2930; J7512; J7644; J8610

== ENCOUNTER 2018-02-26 15:00 | Emergency (ER) | payer OTHER ==
[~2018-02-26] VITALS: Ht 160 cm; Wt 87.2 kg
[~2018-02-26 15:00] MED LIST changes: +AMITRIPTYLINE H10 MG PO
[2018-02-26 16:25] LABS: HEMATOCRIT 36.4 % (36.0-46.0); HEMOGLOBIN 12.1 G/DL (11.9-15.5); MCH 31.1 PG (29.0-34.0); MCHC 33.2 G/DL (30.0-36.0); MCV 93.6 FL (83-99); PLATELET COUNT 185 K/uL (156-360); RBC DIS.WIDTH-CV 14.2 % (11.8-14.6); RBC DIS.WIDTH-SD 48.6 % (39-53); RED BLOOD COUNT 3.89 M/uL (3.80-5.20); WHITE BLOOD COUNT 15.4 K/uL (4.1-10.2)
[2018-02-26 16:36] LABS: ALBUMIN 3.5 g/dL (3.2-4.8); CHLORIDE 99 mEq/L (99-109); POTASSIUM 4.1 mEq/L (3.7-5.4); SODIUM 135 mEq/L (136-147)
[2018-02-26 16:37] LABS: MAGNESIUM 1.6 mg/dL (1.3-2.7)
[2018-02-26 16:39] LABS: TOTAL PROTEIN 5.9 g/dL (6.4-8.3)
[2018-02-26 16:40] LABS: TOTAL BILIRUBIN 0.3 mg/dL (0.0-1.0)
[2018-02-26 16:42] LABS: ALKALINE PHOSPHATASE 106 IU/L (3-129); GFR ESTIMATE (CALCULATED) > 59 mL/min/; PHOSPHORUS 3.1 mg/dL (2.5-4.9)
[2018-02-26 16:43] LABS: UREA NITROGEN (BUN) 12 mg/dL (9-23)
[2018-02-26 16:44] LABS: AST (GOT) 20 IU/L (2-34)
[2018-02-26 16:45] LABS: ALT (GPT) 34 IU/L (3-49)
[2018-02-26 17:07] LABS: GLUCOSE 479 mg/dL (70-99)
[2018-02-26 20:18] VITALS: BP 115/69
== END 2018-02-26 20:20 | disposition home or self-care (01) ==
LOC: EME 15:00
PROVIDERS: Emergency Medicine Emergency Medical Services
DX: J44.1 Chronic obstructive pulmonary disease with (acute) exacerbation (principal); R20.2 Paresthesia of skin; R20.0 Anesthesia of skin; E11.9 Type 2 diabetes mellitus without complications; F32.9 Major depressive disorder, single episode, unspecified; I10 Essential (primary) hypertension; K21.9 Gastro-esophageal reflux disease without esophagitis; M06.9 Rheumatoid arthritis, unspecified; Z79.4 Long term (current) use of insulin; Z86.73 Personal history of transient ischemic attack (TIA), and cerebral infarction without residual deficits; Z87.891 Personal history of nicotine dependence; Z79.82 Long term (current) use of aspirin
CPT/HCPCS: 70450; 71045; 80053; 83735; 84100; 85027; 94640; 99202; 99281; 99284

== ENCOUNTER 2018-03-05 05:29 | Inpatient (IN) | payer OTHER ==
[~2018-03-05] VITALS: Ht 160 cm; Wt 89.3 kg
[2018-03-05 06:31] LABS: HEMATOCRIT 36.4 % (36.0-46.0); HEMOGLOBIN 12.1 G/DL (11.9-15.5); MCH 31.2 PG (29.0-34.0); MCHC 33.2 G/DL (30.0-36.0); MCV 93.8 FL (83-99); PLATELET COUNT 193 K/uL (156-360); RBC DIS.WIDTH-CV 14.4 % (11.8-14.6); RBC DIS.WIDTH-SD 48.8 % (39-53); RED BLOOD COUNT 3.88 M/uL (3.80-5.20)
[2018-03-05 07:07] LABS: TROP-I INTERPRETATION NEGATIVE; TROPONIN-I < 0.01 ng/mL (0.0-0.30)
[2018-03-05 07:08] LABS: ALBUMIN 3.4 G/DL (3.2-4.8); ALKALINE PHOSPHATASE 99 IU/L (3-129); ALT (GPT) 19 IU/L (3-49); AST (GOT) 15 IU/L (2-34); CHLORIDE 100 MEQ/L (99-109); CREATININE 1.1 MG/DL (0.6-1.3); DIRECT BILIRUBIN 0.1 mg/dL (0.0-0.3); GFR ESTIMATE (CALCULATED) 54 mL/min/; GLUCOSE 189 mg/dL (70-99); LIPASE 36 U/L (1.0-51.0); TOTAL BILIRUBIN 0.4 MG/DL (0.0-1.0); TOTAL PROTEIN 5.8 G/DL (6.4-8.3); UREA NITROGEN (BUN) 13 mg/dL (9-23)
[2018-03-05 07:17] LABS: POTASSIUM 3.2 MEQ/L (3.7-5.4); SODIUM 142 MEQ/L (136-147)
[2018-03-05] MEDS ORDERED: ZITHROMAX250 MG PO (09:12)
[2018-03-05] MEDS ORDERED: PREDNISONE20 MG PO (09:12)
[2018-03-05] MEDS ORDERED: LASIX20 MG PO (12:19)
[2018-03-05] MEDS ORDERED: PREDNISONE5 MG PO (12:21)
[2018-03-05 15:05] VITALS: BP 11/58
[2018-03-05] MEDS ORDERED: SPIRIVA RESPIMAT4 GM IH (19:00)
[2018-03-05 22:47] VITALS: BP 145/69
[2018-03-06 01:48] VITALS: BP 142/72
[2018-03-06 06:09] VITALS: BP 143/70
[2018-03-06 07:35] VITALS: BP 156/88
[2018-03-06 10:06] LABS: HEMATOCRIT 33.4 % (36.0-46.0); HEMOGLOBIN 10.7 G/DL (11.9-15.5); MCV 93.6 FL (83-99); PLATELET COUNT 186 K/uL (156-360); RBC DIS.WIDTH-SD 47.9 % (39-53); RED BLOOD COUNT 3.57 M/uL (3.80-5.20); WHITE BLOOD COUNT 25.8 K/uL (4.1-10.2)
[2018-03-06 10:31] LABS: ALBUMIN 3.3 G/DL (3.2-4.8); ALKALINE PHOSPHATASE 80 IU/L (3-129); ALT (GPT) 19 IU/L (3-49); AST (GOT) 13 IU/L (2-34); CHLORIDE 101 MEQ/L (99-109); CREATININE 0.9 MG/DL (0.6-1.3); GFR ESTIMATE (CALCULATED) > 59 mL/min/; SODIUM 136 MEQ/L (136-147); TOTAL PROTEIN 5.4 G/DL (6.4-8.3)
[2018-03-06 10:51] LABS: GLUCOSE 378 mg/dL (70-99); POTASSIUM 4.3 MEQ/L (3.7-5.4); TOTAL BILIRUBIN 0.2 MG/DL (0.0-1.0); UREA NITROGEN (BUN) 22 mg/dL (9-23)
[2018-03-06 11:43] VITALS: BP 109/63
[2018-03-06 16:23] VITALS: BP 119/60
[2018-03-06 20:03] VITALS: BP 134/69
[2018-03-07] VITALS (7 sets, daily range): BP systolic 127–173; BP diastolic 59–77
[2018-03-08] VITALS (7 sets, daily range): BP systolic 116–160; BP diastolic 60–87
[2018-03-08 06:52] LABS: HEMATOCRIT 32.3 % (36.0-46.0); HEMOGLOBIN 10.5 G/DL (11.9-15.5); MCH 30.9 PG (29.0-34.0); MCHC 32.5 G/DL (30.0-36.0); NRBC (%) 0.2 /100 WBC (0-0); PLATELET COUNT 176 K/uL (156-360); RBC DIS.WIDTH-CV 14.6 % (11.8-14.6); RBC DIS.WIDTH-SD 50.3 % (39-53); WHITE BLOOD COUNT 19.9 K/uL (4.1-10.2)
[2018-03-08 07:16] LABS: ALKALINE PHOSPHATASE 63 IU/L (3-129); ALT (GPT) 21 IU/L (3-49); AST (GOT) 14 IU/L (2-34); CHLORIDE 105 MEQ/L (99-109); GFR ESTIMATE (CALCULATED) > 59 mL/min/; GLUCOSE 194 mg/dL (70-99); POTASSIUM 4.6 MEQ/L (3.7-5.4); SODIUM 142 MEQ/L (136-147); TOTAL BILIRUBIN 0.2 MG/DL (0.0-1.0); TOTAL PROTEIN 5.1 G/DL (6.4-8.3); UREA NITROGEN (BUN) 25 mg/dL (9-23)
[2018-03-08 07:25] LABS: ABS NEUTROPHIL COUNT 18.8; ANISOCYTOSIS 1+; BAND NEUTROPHILS 2.6 % (0-8.0); EOSINOPHIL ABS CT 0; LYMPHOCYTES 1.7 % (15.0-45.0); MACROCYTES 1+; METAMYELOCYTES 1.8 %; MONOCYTES 1.8 % (0-9.0); OVALOCYTES 1+; PLAT.SUFFICIENCY ADEQUATE; SEG.NEUTROPHILS 92.1 % (46.0-76.0); TEAR DROP CELLS 1+
[2018-03-08 13:10] LABS: HEMOGLOBIN A1c (GLYCOHEMOGLOB) 9.2 % (Below 5.7)
[2018-03-09 07:27] VITALS: BP 175/79
[2018-03-09 16:01] VITALS: BP 166/83
[2018-03-09 23:28] VITALS: BP 154/77
[2018-03-10 08:06] VITALS: BP 170/80
[2018-03-10] MEDS ORDERED: CEFTIN250 MG PO (13:10)
[2018-03-10] MEDS ORDERED: PREDNISONE20 MG PO (13:14)
== END 2018-03-10 15:24 | disposition home or self-care (01) | DRG 194 ==
LOC: EME 05:29 → EDOF 11:59 → 3EAST 11:59 → ENRESERV 12:21 → 3EAST 14:39
PROVIDERS: Internal Medicine
DX: J18.9 Pneumonia, unspecified organism (principal); J44.0 Chronic obstructive pulmonary disease with (acute) lower respiratory infection; J44.1 Chronic obstructive pulmonary disease with (acute) exacerbation; J96.11 Chronic respiratory failure with hypoxia; Z99.81 Dependence on supplemental oxygen; D64.9 Anemia, unspecified; E55.9 Vitamin D deficiency, unspecified; E53.8 Deficiency of other specified B group vitamins; E11.9 Type 2 diabetes mellitus without complications; I10 Essential (primary) hypertension; E78.5 Hyperlipidemia, unspecified; K21.9 Gastro-esophageal reflux disease without esophagitis; M06.9 Rheumatoid arthritis, unspecified; F32.9 Major depressive disorder, single episode, unspecified; F41.9 Anxiety disorder, unspecified; Z86.73 Personal history of transient ischemic attack (TIA), and cerebral infarction without residual deficits; Z87.891 Personal history of nicotine dependence
CPT/HCPCS: 71046; 71275; 80048; 80053; 80076; 82948; 83036; 83605; 83690; 84484; 85025; 85027; 87040; 93005; 94640; 94640 76; 94644; 94760; 94799; 99202; 99281; 99285; J0456; J0696; J0780; J1815; J2405; J2920; J2930; J3010; J3475; J7030; J7040; J7512; J8610

== ENCOUNTER 2018-03-17 09:15 | Inpatient (IN) | payer OTHER ==
[~2018-03-17] VITALS: Ht 160 cm; Wt 86.4 kg
[~2018-03-17 09:15] MED LIST changes: +CEFTIN250 MG PO; +LASIX20 MG PO; +ZITHROMAX250 MG PO
[2018-03-17 12:46] LABS: HEMATOCRIT 32.7 % (36.0-46.0); HEMOGLOBIN 10.8 G/DL (11.9-15.5); MCH 31.2 PG (29.0-34.0); MCV 94.5 FL (83-99); PLATELET COUNT 182 K/uL (156-360); RBC DIS.WIDTH-SD 51.5 % (39-53); RED BLOOD COUNT 3.46 M/uL (3.80-5.20); WHITE BLOOD COUNT 18.4 K/uL (4.1-10.2)
[2018-03-17] MEDS ORDERED: KETOCONAZOLE60 GM TP (13:20)
[2018-03-17] MEDS ORDERED: MYCOSTATIN 100,60 ML PO (13:20)
[2018-03-17] MEDS ORDERED: AMITRIPTYLINE H10 MG PO (13:21)
[2018-03-17 13:24] LABS: CHLORIDE 107 MEQ/L (99-109); CREATININE 0.7 MG/DL (0.6-1.3); GFR ESTIMATE (CALCULATED) > 59 mL/min/; GLUCOSE 251 mg/dL (70-99); POTASSIUM 3.1 MEQ/L (3.7-5.4); SODIUM 143 MEQ/L (136-147); UREA NITROGEN (BUN) 9 mg/dL (9-23)
[2018-03-17 20:46] VITALS: BP 116/56
[2018-03-17 22:15] VITALS: BP 121/60
[2018-03-17 23:24] VITALS: BP 148/72
[2018-03-18 03:20] VITALS: BP 146/67
[2018-03-18 07:03] VITALS: BP 169/81
[2018-03-18 07:31] LABS: HEMATOCRIT 33.3 % (36.0-46.0); HEMOGLOBIN 10.7 G/DL (11.9-15.5); MCH 30.5 PG (29.0-34.0); MCHC 32.1 G/DL (30.0-36.0); MCV 94.9 FL (83-99); PLATELET COUNT 216 K/uL (156-360); RBC DIS.WIDTH-CV 14.9 % (11.8-14.6); RBC DIS.WIDTH-SD 51.5 % (39-53); RED BLOOD COUNT 3.51 M/uL (3.80-5.20); WHITE BLOOD COUNT 15.3 K/uL (4.1-10.2)
[2018-03-18 07:52] LABS: ALBUMIN 3.1 G/DL (3.2-4.8); ALKALINE PHOSPHATASE 68 IU/L (3-129); ALT (GPT) 28 IU/L (3-49); AST (GOT) 15 IU/L (2-34); CHLORIDE 103 MEQ/L (99-109); CREATININE 0.7 MG/DL (0.6-1.3); GFR ESTIMATE (CALCULATED) > 59 mL/min/; GLUCOSE 249 mg/dL (70-99); SODIUM 140 MEQ/L (136-147); TOTAL BILIRUBIN 0.3 MG/DL (0.0-1.0); TOTAL PROTEIN 5.2 G/DL (6.4-8.3); UREA NITROGEN (BUN) 19 mg/dL (9-23)
[2018-03-18 07:54] LABS: POTASSIUM 4.7 MEQ/L (3.7-5.4)
[2018-03-18 12:27] VITALS: BP 122/60
[2018-03-18 17:21] VITALS: BP 138/65
[2018-03-18 20:20] VITALS: BP 144/71
[2018-03-19] VITALS (7 sets, daily range): BP systolic 117–165; BP diastolic 57–79
[2018-03-20 07:10] VITALS: BP 159/68
[2018-03-20 22:53] VITALS: BP 157/69
[2018-03-21 08:25] VITALS: BP 190/81
[2018-03-21 16:22] VITALS: BP 170/80
[2018-03-22 00:06] VITALS: BP 165/79
[2018-03-22 07:08] VITALS: BP 181/88
[2018-03-22 09:35] VITALS: BP 158/72
[2018-03-22] MEDS ORDERED: DOXYCYCLINE HY100 M3 PO (14:39)
[2018-03-22] MEDS ORDERED: DULERA 200 MCG/13 GM IH (14:50)
[2018-03-22 15:20] VITALS: BP 163/73
== END 2018-03-22 16:35 | disposition home health service (06) | DRG 191 ==
LOC: EME 09:15 → EDOF 17:45 → 2EAST 17:45 → ENRESERV 18:04 → 2EAST 19:42 → ENPENDDIS 03-22 15:30 → 2EAST 03-22 16:35
PROVIDERS: Internal Medicine
DX: J44.1 Chronic obstructive pulmonary disease with (acute) exacerbation (principal); J96.11 Chronic respiratory failure with hypoxia; F33.9 Major depressive disorder, recurrent, unspecified; J44.0 Chronic obstructive pulmonary disease with (acute) lower respiratory infection; I10 Essential (primary) hypertension; J20.9 Acute bronchitis, unspecified; F41.9 Anxiety disorder, unspecified; E87.6 Hypokalemia; E78.5 Hyperlipidemia, unspecified; E55.9 Vitamin D deficiency, unspecified; E53.8 Deficiency of other specified B group vitamins; E11.65 Type 2 diabetes mellitus with hyperglycemia; F17.210 Nicotine dependence, cigarettes, uncomplicated; K21.9 Gastro-esophageal reflux disease without esophagitis; M06.9 Rheumatoid arthritis, unspecified; D64.9 Anemia, unspecified; E66.9 Obesity, unspecified; Z86.72 Personal history of thrombophlebitis; Z86.73 Personal history of transient ischemic attack (TIA), and cerebral infarction without residual deficits; Z87.01 Personal history of pneumonia (recurrent); Z79.84 Long term (current) use of oral hypoglycemic drugs; Z68.33 Body mass index [BMI] 33.0-33.9, adult
CPT/HCPCS: 71046; 80048; 80053; 82948; 85027; 93005; 94640; 94640 76; 94644; 94799; 99202; 99281; 99285; J0696; J1815; J1885; J2920; J2930; J7512

== ENCOUNTER 2018-04-02 04:50 | Inpatient (IN) | payer OTHER ==
[~2018-04-02] VITALS: Ht 162.6 cm; Wt 94.7 kg
[2018-04-02] VITALS (14 sets, daily range): BP systolic 82–146; BP diastolic 54–97
[~2018-04-02 04:50] MED LIST changes: +DOXYCYCLINE HY100 M3 PO; +DULERA 200 MCG/13 GM IH; +KETOCONAZOLE60 GM TP; +MYCOSTATIN 100,60 ML PO
[2018-04-02 06:14] LABS: BASOPHIL (%) 0.2 % (0-1); BASOPHIL COUNT 0.1 K/uL (0-0.1); EOSINOPHIL (%) 0.1 % (0-5); HEMATOCRIT 35.9 % (36.0-46.0); HEMOGLOBIN 11.7 G/DL (11.9-15.5); IMMATURE GRANULOCYTE (%) 1.2 % (0.0-0.7); LYMPHOCYTE (%) 7.3 % (15-42); LYMPHOCYTE COUNT 2.2 K/uL (1.0-2.8); MCH 30.8 PG (29.0-34.0); MCHC 32.6 G/DL (30.0-36.0); MCV 94.5 FL (83-99); MONOCYTE (%) 6.1 % (3-12); MONOCYTE COUNT 1.8 K/uL (0-0.8); NEUTROPHIL (%) 85.1 % (45-76); NEUTROPHIL COUNT 25.4 K/uL (1.8-6.4); PLATELET COUNT 185 K/uL (156-360); RBC DIS.WIDTH-CV 14.6 % (11.8-14.6); RBC DIS.WIDTH-SD 50.9 % (39-53); WHITE BLOOD COUNT 29.9 K/uL (4.1-10.2)
[2018-04-02 06:33] LABS: CHLORIDE 103 mEq/L (99-109); POTASSIUM 3.8 mEq/L (3.7-5.4); SODIUM 140 mEq/L (136-147)
[2018-04-02 06:35] LABS: GLUCOSE 310 mg/dL (70-99)
[2018-04-02 06:39] LABS: GFR ESTIMATE (CALCULATED) > 59 mL/min/
[2018-04-02 06:40] LABS: UREA NITROGEN (BUN) 13 mg/dL (9-23)
[2018-04-02 06:48] LABS: TROP-I INTERPRETATION NEGATIVE; TROPONIN-I 0.02 ng/mL (0.0-0.30)
[2018-04-02 09:03] LABS: COMMENTS - BLOOD GASES C+; DEVICE VENT; SITE RR
[2018-04-02 09:04] LABS: BICARBONATE 23.1 mEq/L (22-26); CARBOXY HGB 1.8 % (0-5); FI02 100 %; MECHANICAL RATE 20 resp/min; METHEMOGLOBIN 1.7 % (0-1.5); MODE AC; PCO2 40 mm Hg (35-45); PO2 558 mm Hg (80-100); TIDAL VOLUME 450 ML; TOTAL RESP RATE 20 resp/min; pH 7.37 (7.35-7.45)
[2018-04-02 10:11] LABS: APPEARANCE CLEAR ((CLEAR)); BILIRUBIN NEGATIVE; BLOOD NEGATIVE; COLOR YELLOW ((YELLOW)); GLUCOSE (STRIP) >=500; KETONES NEGATIVE; LEUKOCYTES NEGATIVE; NITRITE NEGATIVE; PROTEIN (STRIP) NEGATIVE; SPECIFIC GRAVITY 1.027 (1.000-1.030); UROBILINOGEN 0.2 MG/DL (0.2-1.0)
[2018-04-02 17:41] LABS: TROP-I INTERPRETATION NEGATIVE; TROPONIN-I < 0.01 ng/mL (0.0-0.30)
[2018-04-02 17:43] LABS: LACTATE DEHYDROGENASE 381 IU/L (20-246)
[2018-04-02 17:51] LABS: THYROTROPIN (TSH) 0.43 MIU/L (0.4-5.5)
[2018-04-02 18:42] LABS: HIGH-SENS C-REACTIVE PROTEIN > 8.00 MG/DL (0.02-0.20)
[2018-04-03] VITALS (22 sets, daily range): BP systolic 81–147; BP diastolic 43–89
[2018-04-03 07:47] LABS: HEMATOCRIT 30.5 % (36.0-46.0); HEMOGLOBIN 9.9 G/DL (11.9-15.5); MCH 31.4 PG (29.0-34.0); MCHC 32.5 G/DL (30.0-36.0); MCV 96.8 FL (83-99); PLATELET COUNT 135 K/uL (156-360); RBC DIS.WIDTH-CV 14.8 % (11.8-14.6); RBC DIS.WIDTH-SD 52.4 % (39-53); RED BLOOD COUNT 3.15 M/uL (3.80-5.20); WHITE BLOOD COUNT 23.3 K/uL (4.1-10.2)
[2018-04-03 08:52] LABS: ABS NEUTROPHIL COUNT 22.7; EOSINOPHIL ABS CT 0; LYMPHOCYTES 2.2 % (15.0-45.0); MONOCYTES 0.4 % (0-9.0); PLAT.SUFFICIENCY DECREASED; SEG.NEUTROPHILS 73.5 % (46.0-76.0)
[2018-04-03 08:55] LABS: BAND NEUTROPHILS 23.9 % (0-8.0)
[2018-04-03 10:11] LABS: COMMENTS - BLOOD GASES A+C+; SITE RR
[2018-04-03 10:12] LABS: DEVICE TP; FI02 40 %; PCO2 44 mm Hg (35-45); PO2 167 mm Hg (80-100); TOTAL RESP RATE 22 resp/min; pH 7.28 (7.35-7.45)
[2018-04-03 10:13] LABS: BASE EXCESS -5.8 mEq/L (-3 to +3); BICARBONATE 20.7 mEq/L (22-26); CARBOXY HGB 1.4 % (0-5); METHEMOGLOBIN 1.1 % (0-1.5); O2 SATURATION (CALCULATED) 96.9 % (95-99)
[2018-04-03 10:41] LABS: ALBUMIN 2.5 G/DL (3.2-4.8); ALKALINE PHOSPHATASE 63 IU/L (3-129); ALT (GPT) 22 IU/L (3-49); AST (GOT) 13 IU/L (2-34); CHLORIDE 114 MEQ/L (99-109); CREATININE 1.2 MG/DL (0.6-1.3); GFR ESTIMATE (CALCULATED) 49 mL/min/; MAGNESIUM 2.5 mg/dl (1.3-2.7); POTASSIUM 3.9 MEQ/L (3.7-5.4); SODIUM 141 MEQ/L (136-147); TOTAL BILIRUBIN 0.4 MG/DL (0.0-1.0); TOTAL PROTEIN 4.6 G/DL (6.4-8.3)
[2018-04-03 10:45] LABS: GLUCOSE 473 mg/dL (70-99); UREA NITROGEN (BUN) 21 mg/dL (9-23)
[2018-04-04] VITALS (22 sets, daily range): BP systolic 80–124; BP diastolic 43–78
[2018-04-04 00:26] LABS: COMMENTS - BLOOD GASES A+C+; DEVICE VENT; SITE RR
[2018-04-04 00:27] LABS: FI02 30 %; MECHANICAL RATE 20 resp/min; MODE AC; PCO2 44 mm Hg (35-45); PEEP 5 CM/H20; PO2 83 mm Hg (80-100); TIDAL VOLUME 450 ML; TOTAL RESP RATE 22 resp/min; pH 7.26 (7.35-7.45)
[2018-04-04 00:28] LABS: BASE EXCESS -7 mEq/L (-3 to +3); BICARBONATE 19.7 mEq/L (22-26); CARBOXY HGB 1.4 % (0-5); METHEMOGLOBIN 1.1 % (0-1.5)
[2018-04-04 01:11] LABS: HEMATOCRIT 34.4 % (36.0-46.0); HEMOGLOBIN 10.7 G/DL (11.9-15.5); MCH 31.2 PG (29.0-34.0); MCHC 31.1 G/DL (30.0-36.0); MCV 100.3 FL (83-99); PLATELET COUNT 107 K/uL (156-360); RBC DIS.WIDTH-CV 14.7 % (11.8-14.6); RBC DIS.WIDTH-SD 55.1 % (39-53); RED BLOOD COUNT 3.43 M/uL (3.80-5.20); WHITE BLOOD COUNT 26.4 K/uL (4.1-10.2)
[2018-04-04 01:17] LABS: INTER. NORMALIZED RATIO 1.3
[2018-04-04 01:20] LABS: ALBUMIN 2.8 g/dL (3.2-4.8)
[2018-04-04 01:21] LABS: SODIUM 138 mEq/L (136-147)
[2018-04-04 01:23] LABS: TOTAL PROTEIN 4.8 g/dL (6.4-8.3)
[2018-04-04 01:25] LABS: TOTAL BILIRUBIN 0.2 mg/dL (0.0-1.0)
[2018-04-04 01:26] LABS: ALKALINE PHOSPHATASE 74 IU/L (3-129)
[2018-04-04 01:27] LABS: CREATININE 0.9 mg/dL (0.6-1.3); GFR ESTIMATE (CALCULATED) > 59 mL/min/
[2018-04-04 01:28] LABS: AST (GOT) 37 IU/L (2-34); UREA NITROGEN (BUN) 19 mg/dL (9-23)
[2018-04-04 01:29] LABS: ALT (GPT) 30 IU/L (3-49)
[2018-04-04 01:39] LABS: CHLORIDE 115 mEq/L (99-109); GLUCOSE 139 mg/dL (70-99)
[2018-04-04 02:07] LABS: ANISOCYTOSIS 1+; PLAT.SUFFICIENCY ADEQUATE
[2018-04-04 05:39] LABS: ABS NEUTROPHIL COUNT 22.6; BAND NEUTROPHILS 17.5 % (0-8.0); EOSINOPHIL ABS CT 0; HEMATOCRIT 27.3 % (36.0-46.0); LYMPHOCYTES 1.3 % (15.0-45.0); MCH 30.6 PG (29.0-34.0); MCHC 31.5 G/DL (30.0-36.0); MCV 97.2 FL (83-99); METAMYELOCYTES 0.9 %; PLAT.SUFFICIENCY ADEQUATE; PLATELET COUNT 106 K/uL (156-360); POIKILOCYTOSIS 1+; RBC DIS.WIDTH-CV 14.9 % (11.8-14.6); RBC DIS.WIDTH-SD 52.9 % (39-53); RED BLOOD COUNT 2.81 M/uL (3.80-5.20); SEG.NEUTROPHILS 80.3 % (46.0-76.0); WHITE BLOOD COUNT 23.1 K/uL (4.1-10.2)
[2018-04-04 05:58] LABS: HEMOGLOBIN 8.6 G/DL (11.9-15.5)
[2018-04-04 06:05] LABS: ALBUMIN 2.7 G/DL (3.2-4.8); ALKALINE PHOSPHATASE 56 IU/L (3-129); ALT (GPT) 22 IU/L (3-49); CHLORIDE 112 MEQ/L (99-109); GFR ESTIMATE (CALCULATED) > 59 mL/min/; GLUCOSE 132 mg/dL (70-99); POTASSIUM 3.8 MEQ/L (3.7-5.4); SODIUM 139 MEQ/L (136-147); TOTAL PROTEIN 4.5 G/DL (6.4-8.3); UREA NITROGEN (BUN) 18 mg/dL (9-23)
[2018-04-04 06:10] LABS: AST (GOT) 23 IU/L (2-34); MAGNESIUM 2.1 mg/dl (1.3-2.7); TOTAL BILIRUBIN 0.3 MG/DL (0.0-1.0)
[2018-04-04 08:46] LABS: ABS NEUTROPHIL COUNT 26.2; BAND NEUTROPHILS 20.4 % (0-8.0); EOSINOPHIL ABS CT 0; LYMPHOCYTES 0.9 % (15.0-45.0); SEG.NEUTROPHILS 78.7 % (46.0-76.0)
[2018-04-04 09:48] LABS: HEMOGLOBIN A1c (GLYCOHEMOGLOB) 10.3 % (Below 5.7)
[2018-04-04 11:34] LABS: ANTI-DOUBLE STRANDED DNA 14 U/mL (0-99); SCL-70 (SCLERODERMA) ANTIBODY 3 U/mL (0-99)
[2018-04-04 11:42] LABS: COMMENTS - BLOOD GASES A+C+; DEVICE VENT; FI02 30 %; MODE PRESSURE SUPPORT; SITE RIGHT RAD
[2018-04-04 11:43] LABS: BICARBONATE 20.3 mEq/L (22-26); CARBOXY HGB 1.6 % (0-5); PCO2 41 mm Hg (35-45); PEEP 5 CM/H20; PO2 77 mm Hg (80-100); PRES. SUPPORT 10 CM/H2O; TIDAL VOLUME 375 ML; TOTAL RESP RATE 13 resp/min; pH 7.31 (7.35-7.45)
[2018-04-04 11:44] LABS: BASE EXCESS -5.3 mEq/L (-3 to +3)
[2018-04-05] VITALS (17 sets, daily range): BP systolic 121–176; BP diastolic 67–95
[2018-04-05 06:42] LABS: BASOPHIL (%) 0.1 % (0-1); EOSINOPHIL (%) 0 % (0-5); HEMATOCRIT 27.1 % (36.0-46.0); HEMOGLOBIN 8.6 G/DL (11.9-15.5); IMMATURE GRANULOCYTE (%) 2.2 % (0.0-0.7); LYMPHOCYTE (%) 2.1 % (15-42); LYMPHOCYTE COUNT 0.4 K/uL (1.0-2.8); MCH 30.2 PG (29.0-34.0); MCHC 31.7 G/DL (30.0-36.0); MCV 95.1 FL (83-99); MONOCYTE (%) 1.9 % (3-12); MONOCYTE COUNT 0.4 K/uL (0-0.8); NEUTROPHIL (%) 93.7 % (45-76); PLATELET COUNT 104 K/uL (156-360); RBC DIS.WIDTH-CV 14.9 % (11.8-14.6); RED BLOOD COUNT 2.85 M/uL (3.80-5.20); WHITE BLOOD COUNT 19.2 K/uL (4.1-10.2)
[2018-04-05 07:07] LABS: ALKALINE PHOSPHATASE 59 IU/L (3-129); ALT (GPT) 29 IU/L (3-49); AST (GOT) 34 IU/L (2-34); CHLORIDE 111 MEQ/L (99-109); CREATININE 1.2 MG/DL (0.6-1.3); GFR ESTIMATE (CALCULATED) 49 mL/min/; GLUCOSE 122 mg/dL (70-99); MAGNESIUM 2.1 mg/dl (1.3-2.7); PHOSPHORUS 3.9 mg/dL (2.5-4.9); POTASSIUM 4.1 MEQ/L (3.7-5.4); SODIUM 142 MEQ/L (136-147); TOTAL BILIRUBIN 0.3 MG/DL (0.0-1.0); UREA NITROGEN (BUN) 25 mg/dL (9-23)
[2018-04-05] MEDS ORDERED: CYCLOBENZAPRINE10 MG PO (09:47)
[2018-04-05] MEDS ORDERED: ATORVASTATIN CA40 MG PO (09:48)
[2018-04-05] MEDS ORDERED: METHOTREXATE2.5 MG PO (09:48)
[2018-04-05] MEDS ORDERED: BUPROPION HCL100 M1 PO (09:48)
[2018-04-05] MEDS ORDERED: DUONEB 2.5-0.5 M3 ML IPPB (09:49)
[2018-04-05] MEDS ORDERED: GABAPENTIN300 MG PO (09:49)
[2018-04-05] MEDS ORDERED: FUROSEMIDE20 MG PO (09:49)
[2018-04-05] MEDS ORDERED: CITALOPRAM HBR20 MG PO (09:50)
[2018-04-05] MEDS ORDERED: JANUVIA25 M1 PO (09:50)
[2018-04-05] MEDS ORDERED: LISINOPRIL30 MG PO (09:50)
[2018-04-05] MEDS ORDERED: ERGOCALCIF50000 UNIT PO (09:51)
[2018-04-05] MEDS ORDERED: AMITRIPTYLINE H10 MG PO (09:51)
[2018-04-05] MEDS ORDERED: SPIRIVA RESPIMAT4 GM IH (09:52)
[2018-04-05] MEDS ORDERED: FOLIC ACID1 MG PO (09:52)
[2018-04-05] MEDS ORDERED: XARELTO20 MG PO (09:52)
[2018-04-05] MEDS ORDERED: OMEPRAZOLE20 M2 PO (09:52)
[2018-04-05] MEDS ORDERED: DULERA 100 MCG/13 GM IH (09:53)
[2018-04-05] MEDS ORDERED: ASPIR-LOW81 MG PO (09:53)
[2018-04-05] MEDS ORDERED: OXYCODONE HCL5 MG PO (09:53)
[2018-04-05] MEDS ORDERED: METOPROLOL TART25 MG PO (09:53)
[2018-04-05] MEDS ORDERED: PROAIR HFA8.5 GM IH (09:54)
[2018-04-06 03:30] VITALS: BP 160/79
[2018-04-06 05:29] LABS: BASOPHIL (%) 0.4 % (0-1); BASOPHIL COUNT 0.1 K/uL (0-0.1); EOSINOPHIL (%) 0 % (0-5); HEMATOCRIT 28.3 % (36.0-46.0); IMMATURE GRANULOCYTE (%) 3.1 % (0.0-0.7); LYMPHOCYTE COUNT 0.4 K/uL (1.0-2.8); MCH 29.9 PG (29.0-34.0); MCHC 31.8 G/DL (30.0-36.0); MONOCYTE (%) 4.2 % (3-12); MONOCYTE COUNT 0.6 K/uL (0-0.8); NEUTROPHIL (%) 89.3 % (45-76); NEUTROPHIL COUNT 12.3 K/uL (1.8-6.4); NRBC (%) 0.1 /100 WBC (0-0); PLATELET COUNT 111 K/uL (156-360); RBC DIS.WIDTH-CV 15.3 % (11.8-14.6); RBC DIS.WIDTH-SD 52.7 % (39-53); RED BLOOD COUNT 3.01 M/uL (3.80-5.20); WHITE BLOOD COUNT 13.8 K/uL (4.1-10.2)
[2018-04-06 05:52] LABS: ALBUMIN 3.4 G/DL (3.2-4.8); ALKALINE PHOSPHATASE 68 IU/L (3-129); ALT (GPT) 33 IU/L (3-49); AST (GOT) 26 IU/L (2-34); CHLORIDE 110 MEQ/L (99-109); CREATININE 1.2 MG/DL (0.6-1.3); GFR ESTIMATE (CALCULATED) 49 mL/min/; MAGNESIUM 2.2 mg/dl (1.3-2.7); PHOSPHORUS 3.4 mg/dL (2.5-4.9); POTASSIUM 4.2 MEQ/L (3.7-5.4); SODIUM 142 MEQ/L (136-147); TOTAL PROTEIN 5.7 G/DL (6.4-8.3); UREA NITROGEN (BUN) 32 mg/dL (9-23)
[2018-04-06 05:54] LABS: GLUCOSE 188 mg/dL (70-99); TOTAL BILIRUBIN 0.4 MG/DL (0.0-1.0)
[2018-04-06 07:00] VITALS: BP 173/89
[2018-04-06 11:31] VITALS: BP 176/88
[2018-04-06 15:06] VITALS: BP 173/83
[2018-04-06 17:22] LABS: ANTI-CYCLC CITRULLINATED PEPT+ 23 Units (<20)
[2018-04-06 19:40] LABS: MYELOPEROXIDASE ANTIBODY (MPO) <1.0 AI (<1.0); PROTEINASE-3 ANTIBODY+ <1.0 AI (<1.0)
[2018-04-06 20:52] VITALS: BP 110/63
[2018-04-06 21:00] VITALS: BP 181/92
[2018-04-07] VITALS (7 sets, daily range): BP systolic 138–187; BP diastolic 79–98
[2018-04-07 05:00] LABS: HEMATOCRIT 27.7 % (36.0-46.0); MCH 30.3 PG (29.0-34.0); MCHC 32.5 G/DL (30.0-36.0); MCV 93.3 FL (83-99); NRBC (%) 0.4 /100 WBC (0-0); PLATELET COUNT 119 K/uL (156-360); RBC DIS.WIDTH-CV 15.1 % (11.8-14.6); RBC DIS.WIDTH-SD 51.9 % (39-53); RED BLOOD COUNT 2.97 M/uL (3.80-5.20); WHITE BLOOD COUNT 11.1 K/uL (4.1-10.2)
[2018-04-07 05:26] LABS: ALBUMIN 3.3 G/DL (3.2-4.8); ALKALINE PHOSPHATASE 50 IU/L (3-129); ALT (GPT) 33 IU/L (3-49); AST (GOT) 22 IU/L (2-34); CHLORIDE 107 MEQ/L (99-109); GFR ESTIMATE (CALCULATED) > 59 mL/min/; GLUCOSE 223 mg/dL (70-99); MAGNESIUM 1.9 mg/dl (1.3-2.7); PHOSPHORUS 3.2 mg/dL (2.5-4.9); POTASSIUM 4.3 MEQ/L (3.7-5.4); SODIUM 140 MEQ/L (136-147); TOTAL BILIRUBIN 0.4 MG/DL (0.0-1.0); TOTAL PROTEIN 5.3 G/DL (6.4-8.3); UREA NITROGEN (BUN) 34 mg/dL (9-23)
[2018-04-07 06:47] LABS: BASOPHILS 0.9 %; EOSINOPHIL ABS CT 0; LYMPHOCYTES 3.4 % (15.0-45.0); METAMYELOCYTES 0.9 %; MONOCYTES 4.3 % (0-9.0); PLAT.SUFFICIENCY DECREASED; SEG.NEUTROPHILS 90.5 % (46.0-76.0); SMUDGE CELLS 0.9
[2018-04-07 20:22] LABS: Mycelial Phase Antibody <1:8 (<1:8); Yeast Phase Anitbody <1:8 (<1:8)
[2018-04-08] VITALS (7 sets, daily range): BP systolic 18–174; BP diastolic 65–86
[2018-04-08 05:23] LABS: HEMATOCRIT 27.9 % (36.0-46.0); HEMOGLOBIN 9.2 G/DL (11.9-15.5); MCH 30.5 PG (29.0-34.0); MCV 92.4 FL (83-99); NRBC (%) 0.8 /100 WBC (0-0); PLATELET COUNT 151 K/uL (156-360); RBC DIS.WIDTH-CV 14.8 % (11.8-14.6); RBC DIS.WIDTH-SD 50.1 % (39-53); RED BLOOD COUNT 3.02 M/uL (3.80-5.20); WHITE BLOOD COUNT 10.6 K/uL (4.1-10.2)
[2018-04-08 05:48] LABS: ALKALINE PHOSPHATASE 45 IU/L (3-129); ALT (GPT) 31 IU/L (3-49); AST (GOT) 19 IU/L (2-34); CHLORIDE 104 MEQ/L (99-109); CREATININE 0.9 MG/DL (0.6-1.3); GFR ESTIMATE (CALCULATED) > 59 mL/min/; GLUCOSE 167 mg/dL (70-99); MAGNESIUM 1.7 mg/dl (1.3-2.7); PHOSPHORUS 3.7 mg/dL (2.5-4.9); POTASSIUM 3.8 MEQ/L (3.7-5.4); SODIUM 141 MEQ/L (136-147); TOTAL BILIRUBIN 0.4 MG/DL (0.0-1.0); TOTAL PROTEIN 4.7 G/DL (6.4-8.3); UREA NITROGEN (BUN) 33 mg/dL (9-23)
[2018-04-08 05:58] LABS: ABS NEUTROPHIL COUNT 7.5; BAND NEUTROPHILS 1.7 % (0-8.0); EOSINOPHIL ABS CT 0; LYMPHOCYTES 14.9 % (15.0-45.0); METAMYELOCYTES 1.8 %; MONOCYTES 5.3 % (0-9.0); NUCLEATED RBC'S 1.8; PLAT.SUFFICIENCY ADEQUATE; SMUDGE CELLS 4.4
[2018-04-08 06:16] LABS: SEG.NEUTROPHILS 69.3 % (46.0-76.0)
[2018-04-09 02:50] VITALS: BP 148/68
[2018-04-09 05:41] LABS: HEMATOCRIT 31.9 % (36.0-46.0); HEMOGLOBIN 10.4 G/DL (11.9-15.5); MCH 30.1 PG (29.0-34.0); MCHC 32.6 G/DL (30.0-36.0); MCV 92.5 FL (83-99); NRBC (%) 0.5 /100 WBC (0-0); PLATELET COUNT 180 K/uL (156-360); RBC DIS.WIDTH-SD 50.2 % (39-53); RED BLOOD COUNT 3.45 M/uL (3.80-5.20); WHITE BLOOD COUNT 14.8 K/uL (4.1-10.2)
[2018-04-09 05:54] LABS: ALBUMIN 3.1 G/DL (3.2-4.8); ALKALINE PHOSPHATASE 51 IU/L (3-129); ALT (GPT) 31 IU/L (3-49); AST (GOT) 21 IU/L (2-34); CHLORIDE 102 MEQ/L (99-109); CREATININE 0.8 MG/DL (0.6-1.3); GFR ESTIMATE (CALCULATED) > 59 mL/min/; MAGNESIUM 1.5 mg/dl (1.3-2.7); PHOSPHORUS 3.6 mg/dL (2.5-4.9); POTASSIUM 3.4 MEQ/L (3.7-5.4); SODIUM 144 MEQ/L (136-147); TOTAL BILIRUBIN 0.4 MG/DL (0.0-1.0); TOTAL PROTEIN 4.8 G/DL (6.4-8.3); UREA NITROGEN (BUN) 26 mg/dL (9-23)
[2018-04-09 05:59] LABS: GLUCOSE 65 mg/dL (70-99)
[2018-04-09 06:51] LABS: ABS NEUTROPHIL COUNT 9.7; ANISOCYTOSIS 1+; BAND NEUTROPHILS 4.4 % (0-8.0); EOSINOPHIL ABS CT 0; HYPOCHROMASIA 1+; LYMPHOCYTES 14.9 % (15.0-45.0); METAMYELOCYTES 8.8 %; MONOCYTES 6.1 % (0-9.0); MYELOCYTES 4.4 %; NUCLEATED RBC'S 0.9; PLAT.SUFFICIENCY ADEQUATE; POIKILOCYTOSIS 1+; SEG.NEUTROPHILS 61.4 % (46.0-76.0); SMUDGE CELLS 6.1
[2018-04-09 08:00] VITALS: BP 174/80
[2018-04-09 12:00] VITALS: BP 130/60
[2018-04-09 15:05] VITALS: BP 136/67
[2018-04-09 19:05] VITALS: BP 172/80
[2018-04-09 23:15] VITALS: BP 129/98
[2018-04-10 03:24] VITALS: BP 184/74
[2018-04-10 06:35] LABS: CHLORIDE 100 MEQ/L (99-109); CREATININE 0.9 MG/DL (0.6-1.3); GFR ESTIMATE (CALCULATED) > 59 mL/min/; POTASSIUM 3.6 MEQ/L (3.7-5.4); SODIUM 142 MEQ/L (136-147); UREA NITROGEN (BUN) 26 mg/dL (9-23)
[2018-04-10 06:39] LABS: GLUCOSE 91 mg/dL (70-99)
[2018-04-10 08:00] VITALS: BP 155/80
[2018-04-10 12:32] VITALS: BP 124/73
[2018-04-10 16:15] VITALS: BP 121/76
[2018-04-10] MEDS ORDERED: PREDNISONE20 MG PO (17:44)
[2018-04-10] MEDS ORDERED: K-DUR20 MEQ PO (17:44)
[2018-04-10] MEDS ORDERED: AUGMENTIN875 MG PO (17:44)
[2018-04-10] MEDS ORDERED: XARELTO10 MG PO (17:44)
[2018-04-10] MEDS ORDERED: K-DUR10 MEQ PO (17:58)
[2018-04-10] MEDS ORDERED: PREDNISONE10 MG PO (18:01)
== END 2018-04-10 19:00 | disposition home health service (06) | DRG 166 ==
LOC: EME → EDBD 05:02 → EME 05:02 → 4WEST 09:20 → 4EAST 09:20 → EDOF 09:20 → CANRESERV 09:22 → ENRESERV 09:22 → 4WEST 11:44 → ENRESERV 04-05 19:57 → 4EAST 04-05 20:21
PROVIDERS: Emergency Medicine; Internal Medicine; Internal Medicine Pulmonary Disease; Obstetrics & Gynecology; Physician Assistant
DX: J84.9 Interstitial pulmonary disease, unspecified (principal); J96.01 Acute respiratory failure with hypoxia; J44.1 Chronic obstructive pulmonary disease with (acute) exacerbation; J44.0 Chronic obstructive pulmonary disease with (acute) lower respiratory infection; B96.5 Pseudomonas (aeruginosa) (mallei) (pseudomallei) as the cause of diseases classified elsewhere; E78.5 Hyperlipidemia, unspecified; E11.65 Type 2 diabetes mellitus with hyperglycemia; I10 Essential (primary) hypertension; E55.9 Vitamin D deficiency, unspecified; E66.9 Obesity, unspecified; G47.33 Obstructive sleep apnea (adult) (pediatric); E53.8 Deficiency of other specified B group vitamins; M06.9 Rheumatoid arthritis, unspecified; Z86.73 Personal history of transient ischemic attack (TIA), and cerebral infarction without residual deficits; Z87.01 Personal history of pneumonia (recurrent); Z68.35 Body mass index [BMI] 35.0-35.9, adult; K21.9 Gastro-esophageal reflux disease without esophagitis; F41.9 Anxiety disorder, unspecified; F32.9 Major depressive disorder, single episode, unspecified; F17.200 Nicotine dependence, unspecified, uncomplicated; Z86.718 Personal history of other venous thrombosis and embolism; E87.6 Hypokalemia; T38.0X5A Adverse effect of glucocorticoids and synthetic analogues, initial encounter; Y92.230 Patient room in hospital as the place of occurrence of the external cause; Z79.82 Long term (current) use of aspirin; E87.2 Acidosis; D64.9 Anemia, unspecified; E87.70 Fluid overload, unspecified
CPT/HCPCS: 36600; 71045; 71046; 71250; 80048; 80053; 80200; 81003; 82010; 82565; 82803; 82948; 83036; 83605; 83615; 83735; 84100; 84145 90; 84443; 84484; 85025; 85025 91; 85610; 85730; 86021 90; 86141; 86200 90; 86235; 86255 90; 86698 90; 86713 90; 87040; 87070; 87077; 87102; 87116; 87186; 87205; 87206; 87278; 87449; 87502; 87641; 88108; 93005; 93306; 94002; 94003; 94640; 94640 76; 94644; 94667; 94668; 94799; 97530 GO; 97530 GP; 99202; 99281; 99285; C1751; C1894; J0360; J0456; J0692; J1644; J1815; J1940; J1956; J2060; J2250; J2405; J2543; J2704; J2765; J2920; J2930; J3010; J3260; J3370; J3475; J7030; J7042; J7050; J7512; P9045; P9047

== ENCOUNTER 2018-04-23 18:48 | Emergency (ER) | payer OTHER ==
[~2018-04-23] VITALS: Ht 162.6 cm; Wt 85.4 kg
[~2018-04-23 18:48] MED LIST changes: +AUGMENTIN875 MG PO; +BUPROPION HCL100 M1 PO; +CITALOPRAM HBR20 MG PO; +DULERA 100 MCG/13 GM IH; +DUONEB 2.5-0.5 M3 ML IPPB; +FUROSEMIDE20 MG PO; +K-DUR10 MEQ PO; +K-DUR20 MEQ PO; +OMEPRAZOLE20 M2 PO; +OXYCODONE HCL5 MG PO; +PREDNISONE10 MG PO; +PROAIR HFA8.5 GM IH; +XARELTO10 MG PO
[2018-04-23 21:27] LABS: BASOPHIL (%) 0.3 % (0-1); EOSINOPHIL (%) 0.4 % (0-5); EOSINOPHIL COUNT 0.1 K/uL (0-0.3); HEMATOCRIT 29.8 % (36.0-46.0); HEMOGLOBIN 9.8 G/DL (11.9-15.5); IMMATURE GRANULOCYTE (%) 2.3 % (0.0-0.7); LYMPHOCYTE COUNT 1.7 K/uL (1.0-2.8); MCH 30.7 PG (29.0-34.0); MCHC 32.9 G/DL (30.0-36.0); MCV 93.4 FL (83-99); MONOCYTE (%) 8.2 % (3-12); MONOCYTE COUNT 0.9 K/uL (0-0.8); NEUTROPHIL (%) 73.8 % (45-76); NEUTROPHIL COUNT 8.5 K/uL (1.8-6.4); PLATELET COUNT 133 K/uL (156-360); RBC DIS.WIDTH-CV 14.9 % (11.8-14.6); RED BLOOD COUNT 3.19 M/uL (3.80-5.20); WHITE BLOOD COUNT 11.5 K/uL (4.1-10.2)
[2018-04-23 21:36] LABS: ALBUMIN 3.4 g/dL (3.2-4.8)
[2018-04-23 21:37] LABS: CHLORIDE 107 mEq/L (99-109); POTASSIUM 4.3 mEq/L (3.7-5.4); SODIUM 139 mEq/L (136-147)
[2018-04-23 21:39] LABS: GLUCOSE 222 mg/dL (70-99); TOTAL PROTEIN 5.5 g/dL (6.4-8.3)
[2018-04-23 21:41] LABS: TOTAL BILIRUBIN 0.4 mg/dL (0.0-1.0)
[2018-04-23 21:42] LABS: ALKALINE PHOSPHATASE 77 IU/L (3-129)
[2018-04-23 21:43] LABS: CREATININE 1.7 mg/dL (0.6-1.3); GFR ESTIMATE (CALCULATED) 32 mL/min/
[2018-04-23 21:44] LABS: AST (GOT) 13 IU/L (2-34); UREA NITROGEN (BUN) 23 mg/dL (9-23)
[2018-04-23 21:46] LABS: ALT (GPT) 32 IU/L (3-49)
[2018-04-23 21:47] LABS: TROP-I INTERPRETATION NEGATIVE; TROPONIN-I < 0.01 ng/mL (0.0-0.30)
[2018-04-23 21:56] LABS: INTER. NORMALIZED RATIO 1.5
[2018-04-23 22:04] LABS: PTT 26.2 SEC (25-37)
[2018-04-24 00:33] VITALS: BP 114/76
== END 2018-04-24 00:34 | disposition home or self-care (01) ==
LOC: EME 18:48
PROVIDERS: Emergency Medicine
DX: R53.1 Weakness (principal); R42 Dizziness and giddiness; M54.5 Low back pain; J32.0 Chronic maxillary sinusitis; G89.29 Other chronic pain; Z79.891 Long term (current) use of opiate analgesic; Z86.711 Personal history of pulmonary embolism; Z79.01 Long term (current) use of anticoagulants; I10 Essential (primary) hypertension; J44.9 Chronic obstructive pulmonary disease, unspecified; E11.9 Type 2 diabetes mellitus without complications; Z79.84 Long term (current) use of oral hypoglycemic drugs; Z79.82 Long term (current) use of aspirin; Z86.73 Personal history of transient ischemic attack (TIA), and cerebral infarction without residual deficits; Z87.891 Personal history of nicotine dependence
CPT/HCPCS: 70450; 71045; 80053; 84484; 85025; 85610; 85730; 93005; 99281; 99285

== ENCOUNTER 2018-06-06 01:01 | Inpatient (IN) | payer OTHER ==
[~2018-06-06] VITALS: Ht 160 cm; Wt 85.0 kg
[2018-06-06 04:06] LABS: HEMATOCRIT 27.9 % (36.0-46.0); HEMOGLOBIN 9.3 G/DL (11.9-15.5); MCH 32.6 PG (29.0-34.0); MCHC 33.3 G/DL (30.0-36.0); MCV 97.9 FL (83-99); PLATELET COUNT 208 K/uL (156-360); RBC DIS.WIDTH-CV 16.3 % (11.8-14.6); RBC DIS.WIDTH-SD 58.5 % (39-53); RED BLOOD COUNT 2.85 M/uL (3.80-5.20); WHITE BLOOD COUNT 19.8 K/uL (4.1-10.2)
[2018-06-06 04:11] LABS: CARBON DIOXIDE (BICARBONATE) 28.5 MEQ/L (20-31)
[2018-06-06 04:24] LABS: ALBUMIN 3.4 g/dL (3.2-4.8)
[2018-06-06 04:25] LABS: CHLORIDE 108 mEq/L (99-109); POTASSIUM 4.2 mEq/L (3.7-5.4); SODIUM 140 mEq/L (136-147)
[2018-06-06 04:27] LABS: GLUCOSE 160 mg/dL (70-99); TOTAL PROTEIN 5.6 g/dL (6.4-8.3)
[2018-06-06 04:29] LABS: TOTAL BILIRUBIN 0.4 mg/dL (0.0-1.0)
[2018-06-06 04:31] LABS: ALKALINE PHOSPHATASE 89 IU/L (3-129); CREATININE 1.4 mg/dL (0.6-1.3); GFR ESTIMATE (CALCULATED) 41 mL/min/
[2018-06-06 04:32] LABS: UREA NITROGEN (BUN) 22 mg/dL (9-23)
[2018-06-06 04:33] LABS: AST (GOT) 18 IU/L (2-34)
[2018-06-06 04:34] LABS: ALT (GPT) 19 IU/L (3-49)
[2018-06-06 06:50] VITALS: BP 120/68
[2018-06-06 08:17] VITALS: BP 110/60
[2018-06-06 11:34] VITALS: BP 95/56
[2018-06-06] MEDS ORDERED: PREDNISONE5 MG PO (12:16)
[2018-06-06] MEDS ORDERED: XARELTO10 MG PO (12:16)
[2018-06-06] MEDS ORDERED: BREO ELLIPTA I1 EACH IH (12:16)
[2018-06-06 15:57] VITALS: BP 106/60
[2018-06-06 21:46] VITALS: BP 121/60
[2018-06-06 23:28] VITALS: BP 120/68
[2018-06-07 03:40] VITALS: BP 105/61
[2018-06-07 08:32] VITALS: BP 144/71
[2018-06-07 11:21] VITALS: BP 119/77
[2018-06-07 16:09] VITALS: BP 123/64
[2018-06-07 19:30] VITALS: BP 139/70
[2018-06-07 23:50] VITALS: BP 146/83
[2018-06-08 03:40] VITALS: BP 149/85
[2018-06-08 07:20] VITALS: BP 147/81
[2018-06-08 12:09] VITALS: BP 97/70
[2018-06-08 15:10] VITALS: BP 123/70
[2018-06-08 19:05] VITALS: BP 132/68
[2018-06-08 23:10] VITALS: BP 146/71
[2018-06-09 03:14] VITALS: BP 152/80
[2018-06-09 06:40] LABS: BASOPHIL (%) 0.2 % (0-1); EOSINOPHIL (%) 0 % (0-5); HEMATOCRIT 26.9 % (36.0-46.0); HEMOGLOBIN 8.7 G/DL (11.9-15.5); IMMATURE GRANULOCYTE (%) 3.1 % (0.0-0.7); LYMPHOCYTE (%) 6.1 % (15-42); LYMPHOCYTE COUNT 0.8 K/uL (1.0-2.8); MCH 31.9 PG (29.0-34.0); MCHC 32.3 G/DL (30.0-36.0); MCV 98.5 FL (83-99); MONOCYTE (%) 4.9 % (3-12); MONOCYTE COUNT 0.7 K/uL (0-0.8); NEUTROPHIL (%) 85.7 % (45-76); NEUTROPHIL COUNT 11.8 K/uL (1.8-6.4); NRBC (%) 0.2 /100 WBC (0-0); PLATELET COUNT 219 K/uL (156-360); RBC DIS.WIDTH-CV 16.7 % (11.8-14.6); RBC DIS.WIDTH-SD 59.6 % (39-53); RED BLOOD COUNT 2.73 M/uL (3.80-5.20); WHITE BLOOD COUNT 13.8 K/uL (4.1-10.2)
[2018-06-09 07:03] LABS: CHLORIDE 107 MEQ/L (99-109); GLUCOSE 213 mg/dL (70-99); SODIUM 141 MEQ/L (136-147); UREA NITROGEN (BUN) 21 mg/dL (9-23)
[2018-06-09 07:09] LABS: CREATININE 0.9 MG/DL (0.6-1.3); GFR ESTIMATE (CALCULATED) > 59 mL/min/; POTASSIUM 5.1 MEQ/L (3.7-5.4)
[2018-06-09 07:25] VITALS: BP 145/72
[2018-06-09 11:10] VITALS: BP 140/81
[2018-06-09] MEDS ORDERED: XARELTO10 MG PO (15:40)
[2018-06-09] MEDS ORDERED: CEFTIN250 MG PO (15:43)
[2018-06-09] MEDS ORDERED: PREDNISONE20 MG PO (15:43)
== END 2018-06-09 17:06 | disposition home or self-care (01) | DRG 193 ==
LOC: EME 01:01 → EDOF 05:22 → 2EAST 05:22 → ENRESERV 05:24 → 2EAST 06:22
PROVIDERS: Internal Medicine; Physician Assistant
DX: J18.9 Pneumonia, unspecified organism (principal); J96.01 Acute respiratory failure with hypoxia; J44.0 Chronic obstructive pulmonary disease with (acute) lower respiratory infection; J44.1 Chronic obstructive pulmonary disease with (acute) exacerbation; E11.42 Type 2 diabetes mellitus with diabetic polyneuropathy; E53.8 Deficiency of other specified B group vitamins; E78.5 Hyperlipidemia, unspecified; F32.9 Major depressive disorder, single episode, unspecified; F41.9 Anxiety disorder, unspecified; I10 Essential (primary) hypertension; K21.9 Gastro-esophageal reflux disease without esophagitis; M06.9 Rheumatoid arthritis, unspecified; Z86.73 Personal history of transient ischemic attack (TIA), and cerebral infarction without residual deficits; Z87.01 Personal history of pneumonia (recurrent); D64.9 Anemia, unspecified; Z87.891 Personal history of nicotine dependence
CPT/HCPCS: 71046; 80048; 80053; 82803; 82948; 83605; 85025; 85027; 87040; 94640; 94760; 94799; 99281; 99285; J0692; J1815; J7030; J7512; J8610